=== PATIENT | female | born 1975 | race Caucasian/White ===

== ENCOUNTER 2017-07-09 13:55 | Emergency (ER) | payer MEDICAID ==
[~2017-07-09] VITALS: Ht 170.2 cm; Wt 109.8 kg
[~2017-07-09 13:55] MED LIST: ATORVASTATIN CA10 M1 PO; BENTYL GENERIC10 MG PO; DAILY MULTIPLE1 T11 PO; DICYCLOMINE HCL20 MG PO; ESTRACE2 MG OR; FIORICET1 CAP PO; FUROSEMIDE 40MG40 M1 PO; GAS RELIEF 8080 MG PO; IBUPROFEN800 MG PO; KEFLEX 500MG.500 MG PO; MEDROL 4MG. DOSE4 MG PO; PRILOSEC20 M1 PO; TRAZODONE 50MG50 MG PO; VITAMIN D31000 IU PO; VITAMIN D50000 I1 PO; ZOFRAN 8MG TABLE8 MG PO
[2017-07-09] MEDS ORDERED: REGLAN10 M2 PO (14:09)
[2017-07-09] MEDS ORDERED: IMITREX 25MG TA25 MG PO (14:09)
[2017-07-09] MEDS ORDERED: BENADRYL 25MG C25 MG PO (14:10)
--- NOTE | 2017-07-09 14:12 | Emergency Room Report ---
History of Present Illness Time Seen by MD Vigil Presenting Problem in Triage Pt arrived:Wheelchair Presenting Problem:PT REPORTS A MIGRAINE FOR 2 DAYS. PT REPORTS INTERMITTENT DIZZINESS SINCE YESTERDAY. PT REPORTS WAS USING THE BATHROOM, FELT DIZZY AND REPORTS SHE WOKE UP ON THE BATHROOM FLOOR. 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 N Clinical Suspician of Infection? N Mental Status: 1 - Regular (Normal Baseline) Sepsis Risk:Low Sepsis Risk Have you (or family members/close friends) recently traveled outside the [place]? N If Yes, where/when: Have you had exposure to infectious disease within the past month? N TB? Other? Specify: Comment The patient complains of a migraine headache, dizziness, and syncope. She has a history of migraines. She started having a migraine on Wednesday 6 days ago, typical for her. She has a LEFT occipital headache nausea, vomiting, photophobia. It has been worse for the past couple of days. She has dizziness which feels like presyncope and is seeing spots. This morning she was in the bathroom, got dizzy, and woke up on the floor. She does not feel like she injured herself. She has a chronic "knot" in the LEFT occipital area, this is not new. She has used Benadryl and Reglan at home, but not today. It was not helping. She used Imitrex this morning at about 7 AM. ALLERGIES Coded Allergies: Penicillins (Intermediate, I-ITCHING 12/07/15) cephalexin (From KEFLEX) (07/09/16) morphine (07/09/16) Home Medications Reported Medications Estradiol (Estrace) 2 MG OR DAILY Furosemide 40 MG PO DAILY #30 MULTIVITAMIN (Daily Multiple Vitamin) 1 TAB PO DAILY Atorvastatin Calcium 10 MG PO DAILY #30 ERGOCALCIFEROL (VITAMIN D2) (Vitamin D2) 50,000 IUNITS PO DAILY #4 Sumatriptan Succinate (Imitrex 25MG Tablet) 25 MG PO PRN PRN MIGRAINES Metoclopramide HCl (Reglan) 10 MG PO BID Diphenhydramine Hcl (Benadryl 25MG CAP) 1 CAP PO BID History Medical History General CAD? No Angina: No [place]: No Hypertension? No Hyperlipidemia? No CHF? No DVT? No PE? No COPD? No Asthma? No Anemia? No GERD? No Gastric ulcers? No GI Bleed? No Hernia? No Thyroid Problems? No Hypothyroidism? No CVA? No Seizures? No Diabetes? No Renal Insuffiency? No End Stage Renal Disease? No UTI? No Stones? No BPH? No GB Disease: Yes Nephritic Syndrome? No Asplenia? No Hepatitis? No Sickle Cell Disease? No Arthritis? No Migraines? Yes Cataracts? No Glaucoma? No MRSA? No HIV? No TB? No Anxiety? Yes Depression? Yes Cancer? No More? 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 darkened room. Eye Exam - bilateral eye normal exam, bilateral eye PERRL, bilateral eye EOMI Ear, Nose, Throat hearing grossly normal, normal ENT inspection, TMs normal. Neck normal inspection, non-tender, supple, full range of motion Respiratory Status Yes: trachea midline, chest symmetrical, non tender chest. No: respiratory distress. Lung Sounds bilateral: normal breath sounds, lungs clear. 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 Skin intact, normal color, warm/dry Medical Decision Making LABS/Meds/Orders Pt receiving controlled substance in ED? Yes Pradeep was queried for this patient? Yes Comment [id number] 1 rx diazepam on 10/27/16. Results/Orders Laboratory Tests 07/09/17 1410: Sodium 142, Potassium 3.6, Chloride 104, Carbon Dioxide 26, BUN 16, Creatinine 0.8, Estimated Creat Clear 159, Estimated GFR (MDRD) 79, Glucose 116 H, Calcium 9.4, Total Bilirubin 0.5, AST 15, ALT 30, Alkaline Phosphatase 137 H, Total Protein 7.8, Albumin 4.1, Globulin 3.7 H, Albumin/Globulin Ratio 1.1, WBC 7.6, RBC 4.72, Hgb 13.5, Hct 39.0, MCV 82.7, RDW 14.1, Plt Count 268, MPV 9.2, Gran % 59.5, Gran # 4.5, Lymphocytes % 36.3, Monocytes % 3.1, Eosinophils % 0.8, Basophils % 0.3, Lymphocytes # 2.8, Monocytes # 0.2, Eosinophils # 0.1, Basophils # 0.0, PUBS MCHC 34.5, MCH 28.5 Current Medication Orders Sig/Phan Start time Last Medication Dose Route Stop Time Status Admin Hydromorphone HCl 0 .STK-MED ONE 07/09 151 DCr .ROUTE Hydromorphone HCl 1 MG ONCE ONE 07/09 1515 DCr 07/09 IV 07/09 1516 1519 Diphenhydramine HCl 0 .STK-MED ONE 07/09 1444 DC .ROUTE Ketorolac 0 .STK-MED ONE 07/09 1444 DC Tromethamine .ROUTE Metoclopramide HCl 0 .STK-MED ONE 07/09 1444 DC .ROUTE Diphenhydramine HCl 25 MG ONCE ONE 07/09 1430 DC 07/09 IV 07/09 1431 1448 Ketorolac 30 MG ONCE ONE 07/09 1430 DC 07/09 Tromethamine IV 07/09 1431 1449 Metoclopramide HCl 10 MG ONCE ONE 07/09 1430 DC 07/09 IVP 07/09 1431 1449 Sodium Chloride 10 ML PRN PRN 07/09 1415 AC IV 07/10 141 Orders Procedure Date/time Status DIET-NOTHING BY MOUTH 07/09 D Active ELECTROCARDIOGRAM REQUEST 07/[address] HEAD REQ 07/09 1412 Complete IV SALINE LOCK 07/09 1412 Active CBC WITH AUTO DIFF 07/09 1412 Complete CHEM 12 PROFILE 07/09 1412 Complete 12 LEAD EKG-KASI (INITIAL) 07/09 UNK Active CM/EKG CM/EKG Comments EKG interpreted by Rupert Bacon MD: Rhythm: sinus Rate: 66 [place]: LEFT Ectopy: none Conduction: normal ST Segment Changes: none T Wave Changes: none Q Waves: none No evidence of acute ischemia or injury Left ventricular hypertrophy XRAY/CT/US XRAY/CT/US CT head Comment CT scan interpreted by radiologist: Negative Progress - 3:07 PM: Discussed results with patient. Workup negative. States medication has not relieved headache at all, has just made her tired. States has taken Fioricet for migraines in the past, but does not recall anything that has worked in the emergency department. 3:57 PM: Patient states she feels better. Departure Departure Disposition DC Home or Self Care(routine) Clinical Impression Primary Impression: Migraine Qualifiers: Migraine type: without aura Status migrainosus presence: with status migrainosus Intractability: intractable Qualified Code: G43.011 - Migraine without aura, intractable, with status migrainosus Secondary Impressions: Dizziness Syncope Qualifiers: Syncope type: unspecified Qualified Code: R55 - Syncope and collapse Condition STABLE Patient Instructions DI for Dizziness-Nonvertigo, DI for Migraine, DI for Syncope in Adults (Fainting) Prescriptions Current Visit Scripts APAP 325MG/CAFF 40MG/BUTA 50MG ([id number]-[id number]-[id number] 50-325-40) 1 TAB PO Q6HP PRN migraine #12 TAB ED Critical Care Critical Care No
--- NOTE | 2017-07-09 14:12 | Emergency Room Report ---
History of Present Illness Time Seen by MD Vigil Presenting Problem in Triage Pt arrived:Wheelchair Presenting Problem:PT REPORTS A MIGRAINE FOR 2 DAYS. PT REPORTS INTERMITTENT DIZZINESS SINCE YESTERDAY. PT REPORTS WAS USING THE BATHROOM, FELT DIZZY AND REPORTS SHE WOKE UP ON THE BATHROOM FLOOR. 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 N Clinical Suspician of Infection? N Mental Status: 1 - Regular (Normal Baseline) Sepsis Risk:Low Sepsis Risk Have you (or family members/close friends) recently traveled outside the [place]? N If Yes, where/when: Have you had exposure to infectious disease within the past month? N TB? Other? Specify: Comment The patient complains of a migraine headache, dizziness, and syncope. She has a history of migraines. She started having a migraine on Wednesday 6 days ago, typical for her. She has a LEFT occipital headache nausea, vomiting, photophobia. It has been worse for the past couple of days. She has dizziness which feels like presyncope and is seeing spots. This morning she was in the bathroom, got dizzy, and woke up on the floor. She does not feel like she injured herself. She has a chronic "knot" in the LEFT occipital area, this is not new. She has used Benadryl and Reglan at home, but not today. It was not helping. She used Imitrex this morning at about 7 AM. ALLERGIES Coded Allergies: Penicillins (Intermediate, I-ITCHING 12/07/15) cephalexin (From KEFLEX) (07/09/16) morphine (07/09/16) Home Medications Reported Medications Estradiol (Estrace) 2 MG OR DAILY Furosemide 40 MG PO DAILY #30 MULTIVITAMIN (Daily Multiple Vitamin) 1 TAB PO DAILY Atorvastatin Calcium 10 MG PO DAILY #30 ERGOCALCIFEROL (VITAMIN D2) (Vitamin D2) 50,000 IUNITS PO DAILY #4 Sumatriptan Succinate (Imitrex 25MG Tablet) 25 MG PO PRN PRN MIGRAINES Metoclopramide HCl (Reglan) 10 MG PO BID Diphenhydramine Hcl (Benadryl 25MG CAP) 1 CAP PO BID History Medical History General CAD? No Angina: No [place]: No Hypertension? No Hyperlipidemia? No CHF? No DVT? No PE? No COPD? No Asthma? No Anemia? No GERD? No Gastric ulcers? No GI Bleed? No Hernia? No Thyroid Problems? No Hypothyroidism? No CVA? No Seizures? No Diabetes? No Renal Insuffiency? No End Stage Renal Disease? No UTI? No Stones? No BPH? No GB Disease: Yes Nephritic Syndrome? No Asplenia? No Hepatitis? No Sickle Cell Disease? No Arthritis? No Migraines? Yes Cataracts? No Glaucoma? No MRSA? No HIV? No TB? No Anxiety? Yes Depression? Yes Cancer? No More? 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 darkened room. Eye Exam - bilateral eye normal exam, bilateral eye PERRL, bilateral eye EOMI Ear, Nose, Throat hearing grossly normal, normal ENT inspection, TMs normal. Neck normal inspection, non-tender, supple, full range of motion Respiratory Status Yes: trachea midline, chest symmetrical, non tender chest. No: respiratory distress. Lung Sounds bilateral: normal breath sounds, lungs clear. 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 Skin intact, normal color, warm/dry Medical Decision Making LABS/Meds/Orders Pt receiving controlled substance in ED? Yes Pradeep was queried for this patient? Yes Comment [id number] 1 rx diazepam on 10/27/16. Results/Orders Laboratory Tests 07/09/17 1410: Sodium 142, Potassium 3.6, Chloride 104, Carbon Dioxide 26, BUN 16, Creatinine 0.8, Estimated Creat Clear 159, Estimated GFR (MDRD) 79, Glucose 116 H, Calcium 9.4, Total Bilirubin 0.5, AST 15, ALT 30, Alkaline Phosphatase 137 H, Total Protein 7.8, Albumin 4.1, Globulin 3.7 H, Albumin/Globulin Ratio 1.1, WBC 7.6, RBC 4.72, Hgb 13.5, Hct 39.0, MCV 82.7, RDW 14.1, Plt Count 268, MPV 9.2, Gran % 59.5, Gran # 4.5, Lymphocytes % 36.3, Monocytes % 3.1, Eosinophils % 0.8, Basophils % 0.3, Lymphocytes # 2.8, Monocytes # 0.2, Eosinophils # 0.1, Basophils # 0.0, PUBS MCHC 34.5, MCH 28.5 Current Medication Orders Sig/Phan Start time Last Medication Dose Route Stop Time Status Admin Hydromorphone HCl 0 .STK-MED ONE 07/09 151 DCr .ROUTE Hydromorphone HCl 1 MG ONCE ONE 07/09 1515 DCr 07/09 IV 07/09 1516 1519 Diphenhydramine HCl 0 .STK-MED ONE 07/09 1444 DC .ROUTE Ketorolac 0 .STK-MED ONE 07/09 1444 DC Tromethamine .ROUTE Metoclopramide HCl 0 .STK-MED ONE 07/09 1444 DC .ROUTE Diphenhydramine HCl 25 MG ONCE ONE 07/09 1430 DC 07/09 IV 07/09 1431 1448 Ketorolac 30 MG ONCE ONE 07/09 1430 DC 07/09 Tromethamine IV 07/09 1431 1449 Metoclopramide HCl 10 MG ONCE ONE 07/09 1430 DC 07/09 IVP 07/09 1431 1449 Sodium Chloride 10 ML PRN PRN 07/09 1415 AC IV 07/10 141 Orders Procedure Date/time Status DIET-NOTHING BY MOUTH 07/09 D Active ELECTROCARDIOGRAM REQUEST 07/[address] HEAD REQ 07/09 1412 Complete IV SALINE LOCK 07/09 1412 Active CBC WITH AUTO DIFF 07/09 1412 Complete CHEM 12 PROFILE 07/09 1412 Complete 12 LEAD EKG-KASI (INITIAL) 07/09 UNK Active CM/EKG CM/EKG Comments EKG interpreted by Rupert Bacon MD: Rhythm: sinus Rate: 66 [place]: LEFT Ectopy: none Conduction: normal ST Segment Changes: none T Wave Changes: none Q Waves: none No evidence of acute ischemia or injury Left ventricular hypertrophy XRAY/CT/US XRAY/CT/US CT head Comment CT scan interpreted by radiologist: Negative Progress - 3:07 PM: Discussed results with patient. Workup negative. States medication has not relieved headache at all, has just made her tired. States has taken Fioricet for migraines in the past, but does not recall anything that has worked in the emergency department. 3:57 PM: Patient states she feels better. Departure Departure Disposition DC Home or Self Care(routine) Clinical Impression Primary Impression: Migraine Qualifiers: Migraine type: without aura Status migrainosus presence: with status migrainosus Intractability: intractable Qualified Code: G43.011 - Migraine without aura, intractable, with status migrainosus Secondary Impressions: Dizziness Syncope Qualifiers: Syncope type: unspecified Qualified Code: R55 - Syncope and collapse Condition STABLE Patient Instructions DI for Dizziness-Nonvertigo, DI for Migraine, DI for Syncope in Adults (Fainting) Prescriptions Current Visit Scripts APAP 325MG/CAFF 40MG/BUTA 50MG (Iuxcmt-Fojosuuk-Pewc 50-325-40) 1 TAB PO Q6HP PRN migraine #12 TAB ED Critical Care Critical Care No
[2017-07-09 14:20] LABS: HEMOGLOBIN 13.5 g/dL (12.2-16.2); LYMPH # 2.8 K/mm3 (0.7-4.5); LYMPH % 36.3 % (10-50.0)
--- NOTE | 2017-07-09 14:51 | RADIOLOGY REPORT PS360 ---
CT HEAD W/O CONTRAST HISTORY: Severe headache with dizziness DIZZINESS,MIGRAINE ORDERING PHYSICIAN: Rupert Bacno MD PATIENT AGE: 42 years COMPARISON: None TECHNIQUE: Axial images obtained without contrast. Brain and bone windows reviewed. FINDINGS: No midline shift, mass effect, intracranial hemorrhage, hydrocephalus, or extra-axial fluid collection is evident. The calvarium has an unremarkable appearance. No mastoid effusion. The visualized paranasal sinuses are unremarkable. IMPRESSION: Negative CT head without contrast. No acute finding.
[2017-07-09] MEDS ORDERED: APAP/BUTALBITAL1 TA1 PO (16:00)
[2017-07-09 16:16] VITALS: BP 132/88
== END 2017-07-09 16:41 | disposition home or self-care (01) ==
LOC: ER 13:55
PROVIDERS: Emergency Medicine
DX: G43.001 Migraine without aura, not intractable, with status migrainosus (principal); R42 Dizziness and giddiness; R55 Syncope and collapse; Z90.49 Acquired absence of other specified parts of digestive tract; Z79.890 Hormone replacement therapy; Z79.899 Other long term (current) drug therapy; Z88.5 Allergy status to narcotic agent; Z88.0 Allergy status to penicillin; Z88.8 Allergy status to other drugs, medicaments and biological substances

== ENCOUNTER 2017-07-23 18:27 | Emergency (ER) | payer MEDICAID ==
[~2017-07-23] VITALS: Ht 170.2 cm; Wt 109.8 kg
[~2017-07-23 18:27] MED LIST changes: +APAP/BUTALBITAL1 TA1 PO; +BENADRYL 25MG C25 MG PO; +IMITREX 25MG TA25 MG PO; +REGLAN10 M2 PO
[2017-07-23] MEDS ORDERED: TRIAMCINOL30 GM/TUBE TP (18:47)
[2017-07-23 18:48] VITALS: BP 120/83
--- NOTE | 2017-07-23 18:49 | Urgent Treatment Center Report ---
History of Present Issue Date/Time Seen by Provider 07/23/17 4479 Visit Reason Pt arrived:Walked Presenting Problem:PT STATES SHE GOT INTO POISON ROSA 1 HR AGO ON HER FACE AND HANDS Location if Accident: Onset of symptoms date/time:/ or onset unknown for:MEDICAL HX UNKNOWN Have you (or family members/close friends) recently traveled outside the [place]? N If Yes, where/when: Have you had exposure to infectious disease within the past month? TB? Other? Specify: pt c/o exposure to poison rosa <1 hour ago. Already starting to itch carmen wrists and right cheek. No redness, rash, vesicules. "hoping to stop it in its tracks". Pt has not washed/showered since exposure. No treatment prior to arrival. Source patient Exam Limitations no limitations ALLERGIES Coded Allergies: Penicillins (Intermediate, I-ITCHING 12/07/15) cephalexin (From KEFLEX) (07/09/16) morphine (07/09/16) Home Medications Active Scripts APAP 325MG/CAFF 40MG/BUTA 50MG (Vfgnme-Ukulsqyl-Flho 50-325-40) 1 TAB PO Q6HP PRN migraine #12 TAB Prov: 07/09/17 Reported Medications Estradiol (Estrace) 2 MG OR DAILY Furosemide 40 MG PO DAILY #30 MULTIVITAMIN (Daily Multiple Vitamin) 1 TAB PO DAILY Atorvastatin Calcium 10 MG PO DAILY #30 ERGOCALCIFEROL (VITAMIN D2) (Vitamin D2) 50,000 IUNITS PO DAILY #4 Sumatriptan Succinate (Imitrex 25MG Tablet) 25 MG PO PRN PRN MIGRAINES Metoclopramide HCl (Reglan) 10 MG PO BID Diphenhydramine Hcl (Benadryl 25MG CAP) 1 CAP PO BID History Medical History General CAD? No Angina: No [place]: No Hypertension? No Hyperlipidemia? No CHF? No DVT? No PE? No COPD? No Asthma? No Anemia? No GERD? No Gastric ulcers? No GI Bleed? No Hernia? No Thyroid Problems? No Hypothyroidism? No CVA? No Seizures? No Diabetes? No Renal Insuffiency? No UTI? No Stones? No BPH? No GB Disease: Yes Nephritic Syndrome? No Asplenia? No Hepatitis? No Sickle Cell Disease? No Arthritis? No Migraines? Yes Cataracts? No Glaucoma? No MRSA? No HIV? No TB? No Anxiety? Yes Depression? Yes Cancer? No More? No Immunization HX DT/Tetanus > 10 Years Ago Surgical Hx Previous Surgery?Y GALLBLADDER ERCP X2 COLONOSCOPY SIGMOID COLON REMOVED HYSTERECTOMY Social History Smoking Hx Smoker: Never Smoker Tobacco: No Alcohol Alcohol: No Review of Systems All Other Systems Reviewed and Negative Constitutional denies weakness Eyes denies inflammation, denies pain, denies other (itching) ENT denies: throat pain, throat swelling. Respiratory denies shortness of breath Cardiovascular denies chest pain Gastrointestinal denies nausea Musculoskeletal denies other (no pain) Skin see HPI Physical Exam Vital Signs Vital Signs Date Time Temp Pulse Resp B/P Pulse O2 O2 Flow FiO2 Ox Delivery Rate 07/23 1839 98.7 83 20 120/83 98 General Appearance no apparent distress, obese Eye Exam - bilateral eye normal exam Neck normal inspection Respiratory Status No: respiratory distress. Cardiovascular no peripheral edema Neurologic alert, oriented x 3 Mental status normal mood/affect Skin intact, normal color, warm/dry Medical Decision Making LABS/Meds/Orders Pt receiving controlled substance in ED? No Departure Departure Time of Disposition 1844 Disposition DC Home or Self Care(routine) Clinical Impression Primary Impression: Contact dermatitis due to poison ro[place] Condition STABLE Referrals NO REFERRAL See primary care or return to [facility] immediately for new or worsening symptoms as at that time, steroid pills or injections may be more appropriate. Patient Instructions DI for Poison [place] Allergy, Poison [place], Poison [place], Poison [place] Additional Instructions * Poison [place]: Discussed how poison vine spreads. Be sure to wash everything you think you might have been wearing when you were exposed. The longer you wait to shower, the more you are spreading the oils from the vine. SHOWER IMMEDIATELY AFTER EXPOSURE * cool showers or compresses calms the itching. Oatmeal baths may help as well. * If you need additional medication to help with the itching, zyrtec in the morning and if necessary, benadryl at bedtime. Just remember benadryl causes drowsiness. * steroid cream as needed Discharge Counseling Counseled pt/family regarding diagnosis, medications/RX, home care, follow up needs Prescriptions Current Visit Scripts Triamcinolone Acet 0.1% (Triamcinolone Acet 0.1% Cream 30GM) 1 YUVAL TP TIDP PRN itching #30 GM at [id number]
--- NOTE | 2017-07-23 18:49 | Urgent Treatment Center Report ---
History of Present Issue Date/Time Seen by Provider 07/23/17 7169 Visit Reason Pt arrived:Walked Presenting Problem:PT STATES SHE GOT INTO POISON ROSA 1 HR AGO ON HER FACE AND HANDS Location if Accident: Onset of symptoms date/time:/ or onset unknown for:MEDICAL HX UNKNOWN Have you (or family members/close friends) recently traveled outside the [place]? N If Yes, where/when: Have you had exposure to infectious disease within the past month? TB? Other? Specify: pt c/o exposure to poison rosa <1 hour ago. Already starting to itch carmen wrists and right cheek. No redness, rash, vesicules. "hoping to stop it in its tracks". Pt has not washed/showered since exposure. No treatment prior to arrival. Source patient Exam Limitations no limitations ALLERGIES Coded Allergies: Penicillins (Intermediate, I-ITCHING 12/07/15) cephalexin (From KEFLEX) (07/09/16) morphine (07/09/16) Home Medications Active Scripts APAP 325MG/CAFF 40MG/BUTA 50MG (Fkacfd-Svkxqlto-Moxr 50-325-40) 1 TAB PO Q6HP PRN migraine #12 TAB Prov: 07/09/17 Reported Medications Estradiol (Estrace) 2 MG OR DAILY Furosemide 40 MG PO DAILY #30 MULTIVITAMIN (Daily Multiple Vitamin) 1 TAB PO DAILY Atorvastatin Calcium 10 MG PO DAILY #30 ERGOCALCIFEROL (VITAMIN D2) (Vitamin D2) 50,000 IUNITS PO DAILY #4 Sumatriptan Succinate (Imitrex 25MG Tablet) 25 MG PO PRN PRN MIGRAINES Metoclopramide HCl (Reglan) 10 MG PO BID Diphenhydramine Hcl (Benadryl 25MG CAP) 1 CAP PO BID History Medical History General CAD? No Angina: No [place]: No Hypertension? No Hyperlipidemia? No CHF? No DVT? No PE? No COPD? No Asthma? No Anemia? No GERD? No Gastric ulcers? No GI Bleed? No Hernia? No Thyroid Problems? No Hypothyroidism? No CVA? No Seizures? No Diabetes? No Renal Insuffiency? No UTI? No Stones? No BPH? No GB Disease: Yes Nephritic Syndrome? No Asplenia? No Hepatitis? No Sickle Cell Disease? No Arthritis? No Migraines? Yes Cataracts? No Glaucoma? No MRSA? No HIV? No TB? No Anxiety? Yes Depression? Yes Cancer? No More? No Immunization HX DT/Tetanus > 10 Years Ago Surgical Hx Previous Surgery?Y GALLBLADDER ERCP X2 COLONOSCOPY SIGMOID COLON REMOVED HYSTERECTOMY Social History Smoking Hx Smoker: Never Smoker Tobacco: No Alcohol Alcohol: No Review of Systems All Other Systems Reviewed and Negative Constitutional denies weakness Eyes denies inflammation, denies pain, denies other (itching) ENT denies: throat pain, throat swelling. Respiratory denies shortness of breath Cardiovascular denies chest pain Gastrointestinal denies nausea Musculoskeletal denies other (no pain) Skin see HPI Physical Exam Vital Signs Vital Signs Date Time Temp Pulse Resp B/P Pulse O2 O2 Flow FiO2 Ox Delivery Rate 07/23 1839 98.7 83 20 120/83 98 General Appearance no apparent distress, obese Eye Exam - bilateral eye normal exam Neck normal inspection Respiratory Status No: respiratory distress. Cardiovascular no peripheral edema Neurologic alert, oriented x 3 Mental status normal mood/affect Skin intact, normal color, warm/dry Medical Decision Making LABS/Meds/Orders Pt receiving controlled substance in ED? No Departure Departure Time of Disposition 1844 Disposition DC Home or Self Care(routine) Clinical Impression Primary Impression: Contact dermatitis due to poison rosa Condition STABLE Referrals NO REFERRAL See primary care or return to [facility] immediately for new or worsening symptoms as at that time, steroid pills or injections may be more appropriate. Patient Instructions DI for Poison Rosa Allergy, Poison [place], Poison [place], Poison [place] Additional Instructions * Poison Rosa: Discussed how poison vine spreads. Be sure to wash everything you think you might have been wearing when you were exposed. The longer you wait to shower, the more you are spreading the oils from the vine. SHOWER IMMEDIATELY AFTER EXPOSURE * cool showers or compresses calms the itching. Oatmeal baths may help as well. * If you need additional medication to help with the itching, zyrtec in the morning and if necessary, benadryl at bedtime. Just remember benadryl causes drowsiness. * steroid cream as needed Discharge Counseling Counseled pt/family regarding diagnosis, medications/RX, home care, follow up needs Prescriptions Current Visit Scripts Triamcinolone Acet 0.1% (Triamcinolone Acet 0.1% Cream 30GM) 1 YUVAL TP TIDP PRN itching #30 GM at [id number]
== END 2017-07-23 18:49 | disposition home or self-care (01) ==
LOC: ER 18:27 → UTC 18:30 → ER 18:30 → UTC 18:49
DX: L23.7 Allergic contact dermatitis due to plants, except food (principal); Z88.0 Allergy status to penicillin; Z88.5 Allergy status to narcotic agent; Z79.899 Other long term (current) drug therapy; F41.8 Other specified anxiety disorders

== ENCOUNTER 2017-09-28 15:52 | Emergency (ER) | payer MEDICAID ==
[~2017-09-28] VITALS: Ht 170.2 cm; Wt 108.0 kg
[~2017-09-28 15:52] MED LIST changes: +TRIAMCINOL30 GM/TUBE TP
--- NOTE | 2017-09-28 16:21 | Emergency Room Report ---
History of Present Illness Time Seen by [id number] Presenting Problem in Triage Pt arrived:Walked Presenting Problem:PT PRESENTS WITH A MIGRAINE UNLIKE ANY OTHER SHE HAD EVER HAD. STATES SHE IS USUALLY SENSITIVE TO LIGHT BUT TODAY SHE IS HAVING VOMITING AND DIZZINESS; PAIN IN BACK LEFT SIDE OF HEAD SHE STATES. 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 N Clinical Suspician of Infection? N Mental Status: 1 - Regular (Normal Baseline) Sepsis Risk:Low Sepsis Risk Have you (or family members/close friends) recently traveled outside the [place]? N If Yes, where/when: Have you had exposure to infectious disease within the past month? TB? Other? Specify: Comment The patient complains of a migraine headache since 6:30 this morning. She says it is in typical location, LEFT occipital, where she has a chronic knot on her scalp. She has associated photophobia, 4 episodes of vomiting, and lightheadedness. She has tried her typical Fioricet and Zofran without improvement. She says when she comes to the emergency department she generally gets a "migraine cocktail". ALLERGIES Coded Allergies: Penicillins (Intermediate, I-ITCHING 09/28/17) cephalexin (From KEFLEX) (09/28/17) morphine (09/28/17) Home Medications Active Scripts APAP 325MG/CAFF 40MG/BUTA 50MG (Uotiil-Afktdbwv-Ukqd 50-325-40) 1 TAB PO Q6HP PRN migraine #12 TAB Prov: 07/09/17 Triamcinolone Acet 0.1% (Triamcinolone Acet 0.1% Cream 30GM) 1 YUVAL TP TIDP PRN itching #30 GM Prov: 07/23/17 Reported Medications Estradiol (Estrace) 2 MG OR DAILY Furosemide 40 MG PO DAILY #30 MULTIVITAMIN (Daily Multiple Vitamin) 1 TAB PO DAILY Atorvastatin Calcium 10 MG PO DAILY #30 ERGOCALCIFEROL (VITAMIN D2) (Vitamin D2) 50,000 IUNITS PO DAILY #4 Sumatriptan Succinate (Imitrex 25MG Tablet) 25 MG PO PRN PRN MIGRAINES Metoclopramide HCl (Reglan) 10 MG PO BID Diphenhydramine Hcl (Benadryl 25MG CAP) 1 CAP PO BID History Medical History General CAD? No Angina: No [place]: No Hypertension? No Hyperlipidemia? No CHF? No DVT? No PE? No COPD? No Asthma? No Anemia? No GERD? No Gastric ulcers? No GI Bleed? No Hernia? No Thyroid Problems? No Hypothyroidism? No CVA? No Seizures? No Diabetes? No Renal Insuffiency? No End Stage Renal Disease? No UTI? No Stones? No BPH? No GB Disease: Yes Nephritic Syndrome? No Asplenia? No Hepatitis? No Sickle Cell Disease? No Arthritis? No Migraines? Yes Cataracts? No Glaucoma? No MRSA? No HIV? No TB? No Anxiety? Yes Depression? Yes Cancer? No More? 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 Social History Smoking Hx Smoker: Never Smoker Tobacco: No Type N/A Are you/the child exposed to second-hand smoke: No Alcohol Alcohol: No Review of Systems All Other Systems Reviewed and Negative Constitutional denies fever Eyes photophobia Gastrointestinal vomiting Psychiatric/Neurological headache, denies numbness, denies weakness Physical Exam Vital Signs Vital Signs Date Time Temp Pulse Resp B/P Pulse O2 O2 Flow FiO2 Ox Delivery Rate 09/28 1832 65 18 127/82 99 09/28 1746 63 14 130/88 97 09/28 1742 14 09/28 1652 20 09/28 1609 98.1 86 18 120/89 98 General Appearance mild distress Eye Exam - bilateral eye normal exam, bilateral eye PERRL, bilateral eye EOMI Ear, Nose, Throat hearing grossly normal, normal ENT inspection Neck normal inspection, non-tender, supple, full range of motion Respiratory Status No: respiratory distress. 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 Yes Pradeep was queried for this patient? Yes Comment [phone] [id number] rxs. last rx fioricet on 08/30/17. Results/Orders Current Medication Orders Sig/Phan Start time Last Medication Dose Route Stop Time Status Admin Hydromorphone HCl 1 MG ONCE ONE 09/28 1745 DCr 09/28 IV 09/28 1746 1742 Hydromorphone HCl 0 .STK-MED ONE 09/28 1740 DCr .ROUTE Diphenhydramine HCl 0 .STK-MED ONE 09/28 1646 DC .ROUTE Sodium Chloride 1,000 ML .STK-MED ONE 09/28 1646 DC IV Ketorolac 0 .STK-MED ONE 09/28 1645 DC Tromethamine .ROUTE Prochlorperazine 0 .STK-MED ONE 09/28 1645 DC Edisylate .ROUTE Diphenhydramine HCl 25 MG ONCE ONE 09/28 1630 DC 09/28 IV 09/28 1631 1651 Ketorolac 30 MG ONCE ONE 09/28 1630 DC 09/28 Tromethamine IV 09/28 1631 1652 Prochlorperazine 10 MG ONCE ONE 09/28 1630 DC 09/28 Edisylate IV 09/28 1631 1651 Sodium Chloride 1,000 ML .Q1H1M 09/28 1630 DC 09/28 IV 09/28 1730 1651 Sodium Chloride 10 ML PRN PRN 09/28 1630 DCD IV 09/29 1629 Orders Procedure Date/time Status IV SALINE LOCK 09/28 1630 Active Progress - 5:30 PM: Patient states headache is 7/10. The last time she was here she required a dose of Dilaudid in addition to the migraine cocktail. Dilaudid ordered. 6:19 PM: Patient states she is feeling better. Departure Departure Disposition DC Home or Self Care(routine) Clinical Impression Primary Impression: Migraine Qualifiers: Migraine type: without aura Status migrainosus presence: with status migrainosus Intractability: intractable Qualified Code: G43.011 - Migraine without aura, intractable, with status migrainosus Condition STABLE Patient Instructions DI for Migraine Additional Instructions Continue your current headache medications. Additional instructions for HEADACHE: See your physician as soon as possible for further evaluation. Return immediately if worsening headache, vomiting, problems with vision or speech, fever, numbness or weakness of the extremities, neck pain or stiffness. ED Critical Care Critical Care No at 1943
--- NOTE | 2017-09-28 16:21 | Emergency Room Report ---
History of Present Illness Time Seen by [id number] Presenting Problem in Triage Pt arrived:Walked Presenting Problem:PT PRESENTS WITH A MIGRAINE UNLIKE ANY OTHER SHE HAD EVER HAD. STATES SHE IS USUALLY SENSITIVE TO LIGHT BUT TODAY SHE IS HAVING VOMITING AND DIZZINESS; PAIN IN BACK LEFT SIDE OF HEAD SHE STATES. 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 N Clinical Suspician of Infection? N Mental Status: 1 - Regular (Normal Baseline) Sepsis Risk:Low Sepsis Risk Have you (or family members/close friends) recently traveled outside the [place]? N If Yes, where/when: Have you had exposure to infectious disease within the past month? TB? Other? Specify: Comment The patient complains of a migraine headache since 6:30 this morning. She says it is in typical location, LEFT occipital, where she has a chronic knot on her scalp. She has associated photophobia, 4 episodes of vomiting, and lightheadedness. She has tried her typical Fioricet and Zofran without improvement. She says when she comes to the emergency department she generally gets a "migraine cocktail". ALLERGIES Coded Allergies: Penicillins (Intermediate, I-ITCHING 09/28/17) cephalexin (From KEFLEX) (09/28/17) morphine (09/28/17) Home Medications Active Scripts APAP 325MG/CAFF 40MG/BUTA 50MG (Fyjzbk-Brpmyxqh-Fqnu 50-325-40) 1 TAB PO Q6HP PRN migraine #12 TAB Prov: 07/09/17 Triamcinolone Acet 0.1% (Triamcinolone Acet 0.1% Cream 30GM) 1 YUVAL TP TIDP PRN itching #30 GM Prov: 07/23/17 Reported Medications Estradiol (Estrace) 2 MG OR DAILY Furosemide 40 MG PO DAILY #30 MULTIVITAMIN (Daily Multiple Vitamin) 1 TAB PO DAILY Atorvastatin Calcium 10 MG PO DAILY #30 ERGOCALCIFEROL (VITAMIN D2) (Vitamin D2) 50,000 IUNITS PO DAILY #4 Sumatriptan Succinate (Imitrex 25MG Tablet) 25 MG PO PRN PRN MIGRAINES Metoclopramide HCl (Reglan) 10 MG PO BID Diphenhydramine Hcl (Benadryl 25MG CAP) 1 CAP PO BID History Medical History General CAD? No Angina: No [place]: No Hypertension? No Hyperlipidemia? No CHF? No DVT? No PE? No COPD? No Asthma? No Anemia? No GERD? No Gastric ulcers? No GI Bleed? No Hernia? No Thyroid Problems? No Hypothyroidism? No CVA? No Seizures? No Diabetes? No Renal Insuffiency? No End Stage Renal Disease? No UTI? No Stones? No BPH? No GB Disease: Yes Nephritic Syndrome? No Asplenia? No Hepatitis? No Sickle Cell Disease? No Arthritis? No Migraines? Yes Cataracts? No Glaucoma? No MRSA? No HIV? No TB? No Anxiety? Yes Depression? Yes Cancer? No More? 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 Social History Smoking Hx Smoker: Never Smoker Tobacco: No Type N/A Are you/the child exposed to second-hand smoke: No Alcohol Alcohol: No Review of Systems All Other Systems Reviewed and Negative Constitutional denies fever Eyes photophobia Gastrointestinal vomiting Psychiatric/Neurological headache, denies numbness, denies weakness Physical Exam Vital Signs Vital Signs Date Time Temp Pulse Resp B/P Pulse O2 O2 Flow FiO2 Ox Delivery Rate 09/28 1832 65 18 127/82 99 09/28 1746 63 14 130/88 97 09/28 1742 14 09/28 1652 20 09/28 1609 98.1 86 18 120/89 98 General Appearance mild distress Eye Exam - bilateral eye normal exam, bilateral eye PERRL, bilateral eye EOMI Ear, Nose, Throat hearing grossly normal, normal ENT inspection Neck normal inspection, non-tender, supple, full range of motion Respiratory Status No: respiratory distress. 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 Yes Pradeep was queried for this patient? Yes Comment [id number] rxs. last rx fioricet on 08/30/17. Results/Orders Current Medication Orders Sig/Phan Start time Last Medication Dose Route Stop Time Status Admin Hydromorphone HCl 1 MG ONCE ONE 09/28 1745 DCr 09/28 IV 09/28 1746 1742 Hydromorphone HCl 0 .STK-MED ONE 09/28 1740 DCr .ROUTE Diphenhydramine HCl 0 .STK-MED ONE 09/28 1646 DC .ROUTE Sodium Chloride 1,000 ML .STK-MED ONE 09/28 1646 DC IV Ketorolac 0 .STK-MED ONE 09/28 1645 DC Tromethamine .ROUTE Prochlorperazine 0 .STK-MED ONE 09/28 1645 DC Edisylate .ROUTE Diphenhydramine HCl 25 MG ONCE ONE 09/28 1630 DC 09/28 IV 09/28 1631 1651 Ketorolac 30 MG ONCE ONE 09/28 1630 DC 09/28 Tromethamine IV 09/28 1631 1652 Prochlorperazine 10 MG ONCE ONE 09/28 1630 DC 09/28 Edisylate IV 09/28 1631 1651 Sodium Chloride 1,000 ML .Q1H1M 09/28 1630 DC 09/28 IV 09/28 1730 1651 Sodium Chloride 10 ML PRN PRN 09/28 1630 DCD IV 09/29 1629 Orders Procedure Date/time Status IV SALINE LOCK 09/28 1630 Active Progress - 5:30 PM: Patient states headache is 7/10. The last time she was here she required a dose of Dilaudid in addition to the migraine cocktail. Dilaudid ordered. 6:19 PM: Patient states she is feeling better. Departure Departure Disposition DC Home or Self Care(routine) Clinical Impression Primary Impression: Migraine Qualifiers: Migraine type: without aura Status migrainosus presence: with status migrainosus Intractability: intractable Qualified Code: G43.011 - Migraine without aura, intractable, with status migrainosus Condition STABLE Patient Instructions DI for Migraine Additional Instructions Continue your current headache medications. Additional instructions for HEADACHE: See your physician as soon as possible for further evaluation. Return immediately if worsening headache, vomiting, problems with vision or speech, fever, numbness or weakness of the extremities, neck pain or stiffness. ED Critical Care Critical Care No at 1943
--- OUTSIDE RECORDS SUMMARY | 2017-09-28 16:40 | External Medical Summary Rpt | CCD ---
Author Author , [facility] Organization [facility] Address Unknown Phone [email or web address] Care Team Providers Care Career Development Associate Name Role Phone SHUBHAM PATEL, SHUBHAM Unavailable Unavailable [facility] Unavailable Unavailable [place], [facility] Unavailable [facility]available [facility], [facility] Unavailable Unavailable [facility] Unavailable Unavailable PHYSICIANS, [facility] Unavailable Unavailable [facility] Unavailable Unavailable HEPATOL, [facility] Unavailable [facility]available HOSPITA, [facility] Unavailable Unavailable INC, [facility] Unavailable Unavailable HOSPITAL P, [facility]PITAL P [facility], Unavailable Unavailable [facility] Unavailable Unavailable [facility]ING [facility], [facility] Un[facility] Un[facility], [facility] Unavailable Unavailable INTERNAL MED, [facility], Unavailable Unavailable PLL, [facility], [facility] Unavailable [facility]available OF [facility], [facility] Unavailable Unavailable [facility], [facility], Unavailable [facility] Unavailable Unavailable [facility]ICIANS, [facility] Unavailable Unavailable [facility]ANS EKG, [facility] Unavailable Unavailable [facility], [facility], Unavailable [facility]available [facility] Unavailable Unavailable [facility]ICIANS END, [facility] Unavailable Unavailable [facility], Unavailable Unavailable [facility] Purpose Continuity of Care Document - 12-26-2014 through 2016 Problems Code Diagnosis DOS Provider Status [id number] [facility] 08-26-2017 [facility] RAL DISC [facility] DEGEN LUMBOSACRAL REGION [id number] SPINAL 08-26-2017 [facility] INSTABILITI H PAIN ES [facility]OCIATES LUMBOSACRAL REGION M545 LOW BACK 08-26-2017 [facility] A32269 OTHER LONG 08-26-2017 [facility] TERM H PAIN CURRENT [facility]OC[facility]ATES DRUG THERAPY Z71.3 Dietary 08-24-2017 counseling and surveillanc e Z79.899 Other long 08-24-2017 term (current) drug therapy Z6837 BODY MASS 08-24-2017 ST INDEX BMI CEMENT 37.0-37.9 PHYSICIANS ADULT Z713 DIETARY 08-24-2017 ST COUNSELING CEMENT AND PHYSICIANS SURVEILLANC E G43.009 Migraine 07-23-2017 without aura, not intractable , without status migrainosus R11.0 Nausea 07-23-2017 F43.10 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, unspecified E66.9 Obesity, 07-23-2017 unspecified [id number] MIGRAINE 07-09-2017 [facility] W/O AURA [facility] W/STAT MIGRAINOSUS [id number] MIGRAINE 07-09-2017 [facility] W/O AURA PHYSICIANS, INTRACT [facility] W/STAT MIGRAINOSUS R42 DIZZINESS 07-09-2017 [facility] AND PHYSICIANS GIDDINESS [facility] R51 HEADACHE 07-09-2017 [facility] R55 SYNCOPE AND 07-09-2017 [facility] COLLAPSE PHYSICIANS, [facility] [id number] HORMONE 07-09-2017 [facility] REPLACEMENT [facility] THERAPY INC Z880 ALLERGY 07-09-2017 [facility] STATUS TO MEM HOSP PENICILLIN INC Z885 ALLERGY 07-09-2017 [facility] STATUS TO [facility] HOS[facility] NARCOTIC INC AGENT STATUS Z9049 ACQUIRED 07-09-2017 [facility] Q26661 SPONDYLOSIS 06-21-2017 [facility] W/O H MYELOPATH/R ORTHOPAEDIC ADICULOPATH CTR Y LUMB RGN J26949 PAIN IN 06-18-2017 [facility] LEFT FOOT N EM[facility] SERV[facility] I78809 ACQUIRED 06-18-2017 [place] [facility] COMMUNTIY BOTH CERVIX HOSPITA AND UTERUS K648 OTHER 06-09-2017 ST HEMORRHOIDS [facility] R1032 LEFT LOWER 06-09-2017 ST QUADRANT [facility] PAIN PHYSICIANS R197 DIARRHEA 06-09-2017 ST UNSPECIFIED [facility] PH[facility]ANS R933 ABNORM FIND 06-09-2017 ST ON DX IMAG [facility] OT PARTS PHYSICIANS DIGESTIVE TRACT R938 ABNORMAL 06-09-2017 ST FIND ON DX [facility] OT MED CTR SPEC BODY STRCT Z886 ALLERGY 06-09-2017 ST STATUS TO CEMENT ANALGESIC HEALTHCARE AGENT EDGE STATUS [id number] SPRAIN UNS 05-24-2017 [facility] LIGAMENT [facility]OS[facility] LEFT ANKLE INC INITIAL ENCOUNTER [id number] UNSPECIFIED 05-24-2017 [facility] MEDICAL LEFT ANKLE IMAGING ASS INITIAL ENCOUNTER G8929 OTHER 05-19-2017 ST. CHRONIC [facility] PAIN BR[facility] [id number] PAIN IN 05-19-2017 ST. RIGHT HIP [facility] E06406 OTHER 05-19-2017 RADIOLOGY SPONDYLOSIS ASSOCIATES LUMBAR OF [facility] REGION R109 UNSPECIFIED 05-19-2017 ST ABDOMINAL [facility] PAIN PHYSICIANS R609 EDEMA 05-19-2017 ST UNSPECIFIED [facility] PH[facility]ICIANS Z6839 BODY MASS 05-19-2017 ST INDEX BMI [facility] 39.0-39.9 PHYSICIANS ADULT Z8781 PERSONAL 05-19-2017 RADIOLOGY HISTORY OF ASSOCIATES HEALED OF [facility] TRAUMATIC FRACTURE E669 OBESITY 04-16-2017 ST UNSPECIFIED [facility] PHYSICIANS K529 NONINFECTIV 04-16-2017 ST E [facility] GASTROENTER PHYSICIANS ITIS & COLITIS UNS R1030 LOWER 04-14-2017 ST ABDOMINAL [facility] PAIN HEALTHCARE UNSPECIFIED EDGE R1114 BILIOUS 04-14-2017 ST VOMITING [facility] F41.8 Other 01-27-2017 specified anxiety disorders 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 UNSPECIFIED [facility] END R112 NAUSEA WITH 12-08-2016 ST VOMITING [facility] UNSPECIFIED PHYSICIANS R6881 EARLY 12-08-2016 ST SATIETY [facility] Z6838 BODY MASS 12-08-2016 ST INDEX BMI [facility] 38.0-38.9 PHYSICIANS ADULT E785 HYPERLIPIDE 10-28-2016 [facility] UNSPECIFIED INTERNAL MED N74191 MIGRAINE 10-28-2016 [place] UNS NOT VALLEY INTRACT W/O INTERNAL STATUS MED MIGRAINOSUS R1013 EPIGASTRIC 10-28-2016 [place] PAIN VALLEY INTERNAL MED M5382 OTHER 10-21-2016 [place] SPECIFIED CHIROPRACTI DORSOPATHIE C CENTE S CERVICAL REGION M5386 OTHER 10-21-2016 [place] SPECIFIED CHIROPRACTI DORSOPATHIE C CENTE S LUMBAR REGION K5900 CONSTIPATIO 10-08-2016 [place] N VALLEY UNSPECIFIED INTERNAL MED K5909 OTHER 10-08-2016 [facility] CONSTIPATIO GROUND N FAMILY CLINI R140 ABDOMINAL 10-08-2016 [facility] DISTENSION GROUND GASEOUS FAMILY CLINI R748 ABNORMAL 10-08-2016 ST[facility] LEVELS OF GROUND OTHER SERUM FAMILY ENZYMES CLINI I808 PHLEBITIS 09-01-2016 [place] AND [place] THROMBOPHLE INTERNAL BITIS OF MED OTHER SITES I809 PHLEBITIS & 08-31-2016 [facility] THROMBOPHLE BITIS OF UNSPECIFIED SITE M7989 OTHER 08-31-2016 [place] MEDICAL SPECIFIED SERV SOFT TISSUE FOUNDATION DISORDERS S22226P CONTUSION 08-31-2016 [facility] OF LEFT PHYSICIANS, UPPER ARM PLLC INITIAL ENCOUNTER 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 MORBID 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 VALLEY OBESITY DUE INTERNAL TO EXCESS MED CALORIES Z6841 BODY MASS 08-28-2016 [place] INDEX BMI VALLEY 40.0-44.9 INTERNAL ADULT MED K921 MELENA 08-18-2016 [facility] OLOGY AND HEPATOL R740 NONSPECIFIC 08-18-2016 GASTROENTER ELEVATION OLOGY AND LEVELS HEPATOL TRANSAMINAS E & LDH M7061 TROCHANTERI 08-10-2016 [facility] RIGHT HIP R936 ABNORMAL 08-10-2016 [place] [facility] SERV DI[facility]NOSTIC [facility]OUND[facility] IMAGING OF [place] M461 SACROILIITI 07-30-2016 [place] S NOT VALLEY ELSEWHERE INTERNAL CLASSIFIED MED M5430 SCIATICA 07-30-2016 [place] UNSPECIFIED VALLEY SIDE INTERNAL MED R194 CHANGE IN 07-24-2016 [facility] PHYSICIANS GROUP [id number] MIGRAINE 07-09-2016 [facility] W/O AURA PHYSICIANS, NOT INTRACT PLLC W/O STAT MIGRAIN J029 ACUTE 07-09-2016 [facility] PHARYNGITIS UNSPECIFIED J069 ACUTE UPPER 07-09-2016 [facility] RESPIRATORY INFECTION UNSPECIFIED L259 UNSPECIFIED 06-27-2016 [facility] AM[facility] CONTACT DERMATITIS UNSPECIFIED CAUSE 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 URETHRAL 06-04-2016 SHUBHAM AMANDA DISORDER UNSPECIFIED Q92995 PAIN IN 12-07-2015 [facility] N69285 PAIN IN 12-07-2015 [facility] LEFT LOWER PHYSICIANS, LEG PLLC A4268IO UNS INJURY 12-07-2015 [facility] RT LOWER MEDICAL LEG INITIAL IMAGING ASS ENCOUNTER G4700 INSOMNIA 09-09-2015 ST UNSPECIFIED [facility] R5383 OTHER 09-09-2015 ST FATIGUE [facility] 2689 UNSPECIFIED 07-17-2015 COMBINED VITAMIN D PHYSICIANS DEFICIENCY [place] 2724 OTHER AND 07-17-2015 COMBINED [place] [address] PAIN [place] 07-17-2015 COMBINED JOINT, SITE PHYSICIANS [place] UNSPECIFIED 35151 OTHER 07-17-2015 REINIERLELE AMANDA MALAISE AND FATIGUE 6929 CONTACT 07-02-2015 REINIERLELE AMANDA DERMATITIS& OTHER ECZEMA DUE UNSPEC CAUSE 17766 CHEST PAIN 03-04-2015 ST UNSPECIFIED [facility] PH[facility]IANS EKG 2859 UNSPECIFIED 02-19-2015 ST ANEMIA [facility] 6212 HYPERTROPHY 02-19-2015 ST OF UTERUS [facility] 6253 DYSMENORRHE 02-19-2015 ST A [facility] 6269 UNS D/O 02-19-2015 MENSTRUATIO [facility] N&OTH ABN MED CTR BLEED FE GNT TRACT 48505 OTHER 02-18-2015 RADIOLOGY SPECIFIED ASSOCIATES CIRCULATORY OF [facility] SYSTEM DISORDERS V5881 FITTING AND 02-18-2015 RADIOLOGY ADJUSTMENT ASSOCIATES OF OF [facility] VASCULAR CATHETER V7284 UNSPECIFIED 02-13-2015 Jesse PILLAI PRE-OPERATI CRISTINO VE EXAMINATION 13239 OBESITY, 02-08-2015 ST UNSPECIFIED [facility] PH[facility] V8536 BODY MASS 02-08-2015 INDEX [facility] 36.0-36.9 PHYSICIANS ADULT 6262 EXCESSIVE 01-31-2015 ST OR FREQUENT [facility]ICIANS [place] N 89537 MIGRAINE 01-22-2015 ST UNSP W/O [facility] INTRACT W/O PHYSICIANS STATUS MIGRAINOSUS 486 PNEUMONIA, 01-10-2015 [facility] ORGANISM ASSOC[facility] UNSPECIFIED OF [facility] 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 PAIN [facility] BRENDA V140 PERSONAL 01-10-2015 ST. HISTORY OF [facility] ALLERGY TO BRENDA PENICILLIN V145 PERSONAL 01-10-2015 [facility]. [facility] OF [facility] ALLERGY TO BR[facility] NARCOTIC AGENT V173 FAMILY 01-10-2015 [facility]. [facility] OF [facility] ISCHEMIC [facility] HEART DISEASE V1749 FAMILY 01-10-2015 [facility]. HISTORY OF [facility] OTHER BRENDA CARDIOVASCU LAR DISEASES V5869 LONG-TERM 01-10-2015 ST. (CURRENT) [facility] USE OF BRENDA OTHER MEDICATIONS V6759 OTHER 01-10-2015 ST. FOLLOW-UP [facility] EXAMINATION BRENDA OTHER 4660 ACUTE 12-29-2014 BRONCHITIS [facility] 7862 COUGH 12-29-2014 [facility] OF [facility] 4739 UNSPECIFIED 12-26-2014 SINUSITIS [facility] 50981 ESOPHAGEAL 12-26-2014 REFLUX [facility] F45.8 Other somatoform disorders G43.909 MIGRAINE, UNSP, NOT INTRACTABLE , WITHOUT STATUS MIGRAINOSUS G89.29 Other chronic pain K52.9 Noninfectiv e gastroenter itis and colitis, unspecified M25.551 Pain in right hip M54.5 Low back pain R10.2 Pelvic and perineal pain R10.30 Lower abdominal pain, unspecified R10.31 Right lower quadrant pain R10.84 Generalized abdominal pain R10.9 Unspecified abdominal pain R11.14 Bilious vomiting R11.2 Nausea with vomiting, unspecified R19.7 Diarrhea, unspecified R42 DIZZINESS AND GIDDINESS R55 SYNCOPE AND COLLAPSE R68.81 Early satiety R93.8 Abnormal findings on diagnostic imaging of other specified body structures Z12.31 Encounter for screening mammogram for malignant neoplasm of breast Z13.1 Encounter for screening for diabetes mellitus Z13.220 Encounter for screening for lipoid disorders Z23 Encounter for immunizatio n Medications Na ND Rx Da Fi Fi Am Da Di Ph RX Ph St me C No te ll ll ou ys ag ar # ys at rm s nt no ma ic us Or Da si cy ia de te s n re d [place] 50 10 11 6. 5 00 WA Ac IT 11 -1 -1 00 00 L- ti HR 10 5- 7- 0 07 MA ve OM 78 20 20 51 RT YC 75 17 17 54 IN 1 62 PH AR 25 MA 0 CY MG #5 TA 91 BL ET BE 69 10 11 21 5 00 HO Ac NZ 45 -1 -1 .0 00 ME ti ON 20 6- 7- 00 06 TO ve AT 14 20 20 09 WN AT 33 17 17 61 E 0 87 PH 10 AR 0 MA MG CY CA OF PS UL CY E NT HI AN A BU 00 09 10 20 5 00 HO Ac TA 59 -2 -2 .0 00 ME ti LB 13 1- 7- 00 04 TO ve -A 36 20 20 02 WN CE 90 17 17 47 TA 5 37 PH ND AR N- MA CA CY FF OF 50 -3 CY 25 NT -4 HI 0 AN A ME 63 09 10 12 6 00 HO Ac TO 30 -2 -2 0. 00 ME ti CL 40 1- 7- 00 06 TO ve OP 84 20 20 0 09 WN RA 50 17 17 47 ND 5 96 PH DE AR 5 MA CY MG OF TA BL CY ET NT HI AN A FL 68 09 10 28 7 00 HO Ac OM 00 -2 -2 .0 00 ME ti ET 10 1 7- 06 TO ve DAVIS 16 20 20 09 WN ZI 20 17 17 47 NE 8 98 PH AR 25 MA CY MG OF TA BL CY ET NT HI AN A TO 68 09 10 30 30 00 HO Ac PI 46 -2 -2 .0 00 ME ti RA 20 1 7- 00 06 TO ve MA 10 20 20 09 WN TE 86 17 17 47 0 99 PH 25 AR MA MG CY TA OF BL ET CY NT HI AN A TR 00 09 10 30 7 00 WA Ac IA 60 -2 -2 .0 00 L- ti MC 37 2- 7- 00 07 MA ve IN 86 20 20 51 RT OL 27 17 17 14 ON 8 46 PH E AR 0. MA 1% CY CR #5 EA 91 M ON 57 09 10 30 8 00 WA Ac DA 23 -2 -2 .0 00 L- ti NS 70 7- 7- 00 07 MA ve ET 07 20 20 49 RT RO 81 17 17 53 N 0 44 PH OD AR T MA 8 CY MG #5 TA 91 BL ET AT 60 09 10 30 30 00 HO Ac OR 50 -2 -2 .0 00 ME ti VA 52 2- 7- [address] 57 20 20 09 WN AT 80 17 17 12 IN 9 75 PH AR 10 MA CY MG OF TA BL CY ET NT HI AN A ES 51 09 10 30 30 00 HO Ac TR 86 -2 -2 .0 00 ME ti AD 20 2- 7- 00 06 TO ve IO 33 20 20 08 WN L 40 17 17 43 2 1 57 PH MG AR MA TA CY BL ET OF CY NT HI AN A TI 29 09 10 60 30 00 HO Ac ZA 30 -2 -2 .0 00 ME ti NI 00 6- 7- 00 06 TO ve DI 16 20 20 09 WN NE 91 17 17 50 0 14 PH HC AR L MA 4 CY MG OF TA BL CY ET NT HI AN A BU 00 09 10 12 3 00 HO Ac TA 59 -0 -1 .0 00 ME ti LB 13 8- 3- 00 04 TO ve -A 36 20 20 02 WN CE 90 17 17 45 TA 5 31 PH ND AR N- MA CA CY FF OF 50 -3 CY 25 NT -4 HI 0 AN A SE 65 08 09 30 30 00 HO Ac RT 86 -2 -2 .0 00 ME ti RA 20 1- 2- 00 06 TO ve LI 01 20 20 08 WN NE 20 17 17 85 5 04 PH HC AR L MA 50 CY MG OF TA CY BL NT ET HI AN A AT 60 08 09 30 30 00 HO Ac OR 50 -2 -2 .0 00 ME ti VA 52 1- 2- [address] 57 20 20 09 WN AT 80 17 17 12 IN 9 75 PH AR 10 MA CY MG OF TA BL CY ET NT HI AN A FL 00 08 09 10 5 00 WA Ac ED 14 -2 -2 .0 00 L- ti NI 39 0- 2- 00 07 MA ve SO 73 20 20 50 RT NE 80 17 17 49 5 57 PH 20 AR MA MG CY TA #5 BL 91 ET ON 57 08 09 30 8 00 WA Ac DA 23 -2 -2 .0 00 L- ti NS 70 1- 2- 00 07 MA ve ET 07 20 20 49 RT RO 81 17 17 53 N 0 44 PH OD AR T MA 8 CY MG #5 TA 91 BL ET ME 00 08 09 60 30 00 HO Ac TO 09 -2 -2 .0 00 ME ti CL 32 1- 2- 00 06 TO ve OP 20 20 20 07 WN RA 40 17 17 79 ND 1 14 PH DE AR 5 MA CY MG OF TA BL CY ET NT HI AN A DI 00 08 09 60 30 00 HO Ac PH 18 -2 -2 .0 00 ME ti EN 50 1- 2- 00 06 TO ve HY 64 [address] 81 17 17 79 AM 0 09 PH IN AR E MA 25 CY MG OF CA CY PS NT UL HI E AN A ES 51 08 09 30 30 00 HO Ac TR 86 -2 -2 .0 00 ME ti AD 20 1- 2- 00 06 TO ve IO 33 20 20 08 WN L 40 17 17 43 2 1 57 PH MG AR MA TA CY BL ET OF CY NT HI AN A IB 53 07 08 30 8 00 HO Ac UP 74 -2 -2 .0 00 ME ti RO 60 5- 5- 00 06 TO ve FE 46 20 20 09 WN N 60 17 17 12 80 5 78 PH 0 AR MG MA CY TA BL OF ET CY NT HI AN A ME 68 07 08 21 6 00 HO Ac TH 00 -2 -2 .0 00 ME ti YL 10 0- 5- 00 06 TO ve FL 00 20 20 09 WN ED 50 17 17 10 NI 1 52 PH SO AR LO MA NE CY 4 OF MG CY DO NT SE HI PK AN A AT 60 07 08 30 30 00 HO Ac OR 50 -2 -2 .0 00 ME ti VA 52 4- 5- [address] 57 20 20 09 WN AT 80 17 17 12 IN 9 75 PH AR 10 MA CY MG OF TA BL CY ET NT HI AN A ON 57 06 07 30 8 00 WA Ac DA 23 -2 -2 .0 00 L- ti NS 70 3- 8- 00 07 MA ve ET 07 20 20 49 RT RO 81 17 17 53 N 0 44 PH OD AR T MA 8 CY MG #5 TA 91 BL ET ME 50 06 07 30 30 00 HO Ac TR 11 -1 -2 .0 00 ME ti ON 10 5- 1- 00 06 TO ve ID 33 20 20 08 WN AZ 40 17 17 89 OL 1 99 PH E AR 50 MA 0 CY MG OF TA BL CY ET NT HI AN A CI 16 06 07 20 10 00 HO Ac FL 57 -1 -2 .0 00 ME ti OF 10 5- 1- 00 06 TO ve LO 41 20 20 08 WN XA 25 17 17 90 CI 0 00 PH N AR HC MA L CY 50 0 OF MG CY TA NT B HI AN A FL 68 06 07 20 5 00 HO Ac OM 38 -0 -1 .0 00 ME ti ET 20 8- 4- 00 06 TO ve DAVIS 04 20 20 08 WN ZI 00 17 17 85 NE 1 72 PH AR 12 MA .5 CY MG OF TA CY BL NT ET HI AN A SE 65 06 07 30 30 00 HO Ac RT 86 -0 -0 .0 00 ME ti RA 20 7- 7- 00 06 TO ve LI 01 20 20 08 WN NE 20 17 17 85 5 04 PH HC AR L MA 50 CY MG OF TA CY BL NT ET HI AN A ES 51 05 06 30 30 00 HO Ac TR 86 -3 -3 .0 00 ME ti AD 20 1- 0- 00 06 TO ve IO 33 20 20 08 WN L 40 17 17 43 2 1 57 PH MG AR MA TA CY BL ET OF CY NT HI AN A BU 00 05 06 60 30 00 HO Ac SP 11 -3 -3 .0 00 ME ti IR 51 1- 0- 00 06 TO ve ON 69 20 20 08 WN E 20 17 17 14 HC 2 94 PH L AR 15 MA CY MG OF TA BL CY ET NT HI AN A DI 00 05 06 12 30 00 HO Ac CY 37 -3 -3 0. 00 ME ti CL 81 1- 0- 00 06 TO ve OM 61 20 20 0 08 WN IN 00 17 17 41 E 5 57 PH 10 AR MA MG CY CA OF PS UL CY E NT HI AN A ME 63 05 06 12 30 00 HO Ac TO 30 -3 -3 0. 00 ME ti CL 40 1- 0- 00 06 TO ve OP 84 20 20 0 08 WN RA 50 17 17 80 ND 5 56 PH DE AR 5 MA CY MG OF TA BL CY ET NT HI AN A ME 63 05 06 12 30 00 HO Ac TO 30 -0 -0 0. 00 ME ti CL 40 1- 2- 00 06 TO ve OP 84 20 20 0 08 WN RA 50 17 17 60 ND 5 89 PH DE AR 5 MA CY MG OF TA BL CY ET NT HI AN A ES 51 05 06 30 30 00 HO Ac TR 86 -0 -0 .0 00 ME ti AD 20 1- 2- 00 06 TO ve IO 33 20 20 08 WN L 40 17 17 43 2 1 57 PH MG AR MA TA CY BL ET OF CY NT HI AN A DI 00 04 06 12 30 00 HO Ac CY 37 -2 -0 0. 00 ME ti CL 81 8- 2- 00 06 TO ve OM 61 20 20 0 08 WN IN 00 17 17 41 E 5 57 PH 10 AR MA MG CY CA OF PS UL CY E NT HI AN A ES 51 04 05 30 30 00 HO Ac TR 86 -0 -0 .0 00 ME ti AD 20 3- 5- 00 06 TO ve IO 33 20 20 08 WN L 40 17 17 43 2 1 57 PH MG AR MA TA CY BL ET OF CY NT HI AN A DI 00 03 04 12 30 00 HO Ac CY 37 -2 -2 0. 00 ME ti CL 81 9- 8- 00 06 TO ve OM 61 20 20 0 08 WN IN 00 17 17 41 E 5 57 PH 10 AR MA MG CY CA OF PS UL CY E NT HI AN A ON 00 03 04 30 8 00 HO Ac DA 37 -2 -2 .0 00 ME ti NS 87 9- 8- 00 06 TO ve ET 73 20 20 08 WN RO 49 17 17 41 N 3 58 PH OD AR T MA 8 CY MG OF TA BL CY ET NT HI AN A RA 53 03 04 60 30 00 HO Ac NI 74 -2 -2 .0 00 ME ti TI 60 1- 1- 00 06 TO ve DI 25 20 20 07 WN NE 31 17 17 79 0 24 PH 15 AR 0 MA MG CY TA OF BL ET CY NT HI AN A AT 60 03 04 30 30 00 HO Ac OR 50 -2 -2 .0 00 ME ti VA 52 1- 1- [address] 57 20 20 07 WN AT 80 17 17 79 IN 9 23 PH AR 10 MA CY MG OF TA BL CY ET NT HI AN A BU 00 03 04 60 30 00 HO Ac SP 11 -2 -2 .0 00 ME ti IR 51 1- 1- 00 06 TO ve ON 69 20 20 08 WN E 20 17 17 14 HC 2 94 PH L AR 15 MA CY MG OF TA BL CY ET NT HI AN A FU 69 03 04 30 30 00 HO Ac RO 31 -2 -2 .0 00 ME ti SE 50 1- 1- 00 06 TO ve ND 11 20 20 07 WN DE 71 17 17 04 0 10 PH 40 AR MA MG CY TA OF BL ET CY NT HI AN A ON 45 02 03 30 30 00 HO Ac DA 96 -0 -1 .0 00 ME ti NS 30 9- 7- 00 06 TO ve ET 53 20 20 08 WN RO 93 17 17 11 N 0 44 PH HC AR L MA 8 CY MG OF TA BL CY ET NT HI AN A CAVAZOS 62 02 03 9. 23 00 HO Ac MA 75 -1 -1 00 00 ME ti TR 60 5- 7- 0 06 TO ve IP 52 20 20 08 WN TA 26 17 17 14 N 9 92 PH CAVAZOS AR CC MA CY 10 0 OF MG CY TA NT BL HI ET AN A DI 62 02 03 30 30 00 HO Ac VA 75 -1 -1 .0 00 ME ti LP 60 5- 7- 00 06 TO ve RO 79 20 20 08 WN EX 78 17 17 14 8 93 PH SO AR D MA DR CY 25 OF 0 MG CY NT TA HI B AN A BU 00 02 03 60 30 00 HO Ac SP 11 -1 -1 .0 00 ME ti IR 51 5- 7- 00 06 TO ve ON 69 20 20 08 WN E 20 17 17 14 HC 2 94 PH L AR 15 MA CY MG OF TA BL CY ET NT HI AN A ON 02 03 15 15 00 HO Ac DA 46 -0 -1 .0 00 ME ti NS 20 3- 0- 00 06 TO ve ET 15 20 20 08 WN RO 81 17 17 08 N 3 02 PH OD AR T MA 8 CY MG OF TA BL CY ET NT HI AN A ES 51 01 03 30 30 00 HO Ac TR 86 -3 -0 .0 00 ME ti AD 20 0- 3- 00 06 TO ve IO 33 20 20 07 WN L 40 17 17 13 2 1 46 PH MG AR MA TA CY BL ET OF CY NT HI AN A FL 00 01 03 60 30 00 HO Ac OP 59 -3 -0 .0 00 ME ti RA 15 0- 3- 00 06 TO ve NO 55 20 20 07 WN LO 60 17 17 79 L 1 13 PH 40 AR MA MG CY TA OF BL ET CY NT HI AN A ME 00 01 03 60 30 00 HO Ac TO 09 -3 -0 .0 00 ME ti CL 32 0- 3- 00 06 TO ve OP 20 20 20 07 WN RA 40 17 17 79 ND 1 14 PH DE AR 5 MA CY MG OF TA BL CY ET NT HI AN A DI 00 01 03 60 30 00 HO Ac PH 18 -3 -0 .0 00 ME ti EN 50 0- 3- 00 06 TO ve HY 64 [address] 81 17 17 79 AM 0 09 PH IN AR E MA 25 CY MG OF CA CY PS NT UL HI E AN A 51 01 03 4. 29 00 HO Ac T 99 -3 -0 00 00 ME ti D2 10 0- 3- 0 06 TO ve 60 20 20 08 WN 1. 40 17 17 04 25 1 18 PH AR MG MA CY (5 0, OF 00 0 CY UN NT IT HI ) AN A LI 00 01 03 30 30 00 HO Ac NZ 45 -3 -0 .0 00 ME ti ES 61 0- 3- 00 06 TO ve S 20 20 20 07 WN 29 23 17 17 71 0 0 56 PH MC AR G MA CA CY PS UL OF E CY NT HI AN A FU 69 01 03 30 30 00 HO Ac RO 31 -3 -0 .0 00 ME ti SE 50 0- 3- 00 06 TO ve ND 11 20 20 07 WN DE 71 17 17 04 0 10 PH 40 AR MA MG CY TA OF BL ET CY NT HI AN A AT 60 01 03 30 30 00 HO Ac OR 50 -3 -0 .0 00 ME ti VA 52 0- 3- [address] 57 20 20 07 WN AT 80 17 17 79 IN 9 23 PH AR 10 MA CY MG OF TA BL CY ET NT HI AN A RA 53 01 03 60 30 00 HO Ac NI 74 -3 -0 .0 00 ME ti TI 60 0- 3- 00 06 TO ve DI 25 20 20 07 WN NE 31 17 17 79 0 24 PH 15 AR 0 MA MG CY TA OF BL ET CY NT HI AN A BU 00 01 03 60 30 00 HO Ac SP 59 -3 -0 .0 00 ME ti IR 10 0- 3- 00 06 TO ve ON 65 20 20 08 WN E 80 17 17 04 HC 5 30 PH L AR 10 MA CY MG OF TA BL CY ET NT HI AN A DI 00 12 01 3. 3 00 HO Ac AZ 59 -2 -2 00 00 ME ti EP 15 7- 7- 0 04 TO ve AM 62 20 20 02 WN 2 10 16 17 07 5 95 PH MG AR MA TA CY BL ET OF CY NT HI AN A AT 60 12 01 30 30 00 HO Ac OR 50 -1 -2 .0 00 ME ti VA 52 9- 0- [address] 57 20 20 07 WN AT 80 16 17 79 IN 9 23 PH AR 10 MA CY MG OF TA BL CY ET NT HI AN A RA 68 12 01 60 30 00 HO Ac NI 46 -1 -2 .0 00 ME ti TI 20 9- 0- 00 06 TO ve DI 24 20 20 07 WN NE 80 16 17 79 5 24 PH 15 AR 0 MA MG CY TA OF BL ET CY NT HI AN A BU 00 12 01 60 30 00 HO Ac SP 59 -2 -2 .0 00 ME ti IR 10 0- 0- 00 06 TO ve ON 65 20 20 07 WN E 80 16 17 36 HC 5 14 PH L AR 10 MA CY MG OF TA BL CY ET NT HI AN A ES 51 12 01 30 30 00 HO Ac TR 86 -1 -2 .0 00 ME ti AD 20 9- 0- 00 06 TO ve IO 33 20 20 07 WN L 40 16 17 13 2 1 46 PH MG AR MA TA CY BL ET OF CY NT HI AN A DI 00 12 01 60 30 00 HO Ac PH 18 -1 -2 .0 00 ME ti EN 50 9- 0- 00 06 TO ve HY 64 [address] 81 16 17 79 AM 0 09 PH IN AR E MA 25 CY MG OF CA CY PS NT UL HI E AN A FL 00 12 01 60 30 00 HO Ac OP 59 -1 -2 .0 00 ME ti RA 15 9- 0- 00 06 TO ve NO 55 20 20 07 WN LO 60 16 17 79 L 1 13 PH 40 AR MA MG CY TA OF BL ET CY NT HI AN A ME 00 12 01 60 30 00 HO Ac TO 09 -1 -2 .0 00 ME ti CL 32 9- 0- 00 06 TO ve OP 20 20 20 07 WN RA 40 16 17 79 ND 1 14 PH DE AR 5 MA CY MG OF TA BL CY ET NT HI AN A 51 12 01 4. 28 00 HO Ac T 99 -2 -2 00 00 ME ti D2 10 0- 0- 0 06 TO ve 60 20 20 07 WN 1. 40 16 17 39 25 1 52 PH AR MG MA CY (5 0, OF 00 0 CY UN NT IT HI ) AN A FU 69 12 01 30 30 00 HO Ac RO 31 -1 -2 .0 00 ME ti SE 50 9- 0- 00 06 TO ve ND 11 20 20 07 WN DE 71 16 17 04 0 10 PH 40 AR MA MG CY TA OF BL ET CY NT HI AN A LI 00 12 01 30 30 00 HO Ac NZ 45 -1 -1 .0 00 ME ti ES 61 2- 3- 00 06 TO ve S 20 20 20 07 WN 29 23 16 17 71 0 0 56 PH MC AR G MA CA CY PS UL OF E CY NT HI AN A Encounters Encounter Start End Date Code Location Performer Type Date [facility] - 7 7 [facility] [place] [id number] 7 [facility] [place] [id number] 7 [address] [facility] [place] [address] [address] [facility] [place] [address] [facility] [place] [address] [address] [facility] [place] [address] [address] [facility] [address] [facility] [place] [address] [address] [facility] [place] [address] [address] [facility] [address] [facility] N [facility] - [address] [facility] [address] - 5 5 [facility] - 5 5 [facility]
--- OUTSIDE RECORDS SUMMARY | 2017-09-28 16:40 | External Medical Summary Rpt | CCD ---
Author Author , [facility] Organization [facility] Address Unknown Phone [email or web address] Care Team Providers Care Nurse Recruiter Name Role Phone SHUBHAM PATEL, SHUBHAM Unavailable Unavailable [facility] Unavailable Unavailable [place], [facility] Unavailable Unavailable [facility], [facility] Unavailable Unavailable [facility], [facility] Unavailable Unavailable PHYSICIANS, [facility] Unavailable Unavailable [facility] Unavailable Unavailable [facility], [facility], [facility] Unavailable Unavailable INC, [facility] Unavailable Unavailable HOSPITAL P, [facility] P [facility], Unavailable Unavailable [facility] Unavailable Unavailable [facility], [facility] Un[facility], [facility] Unavailable Unavailable INTERNAL MED, [facility], Unavailable Unavailable PLL, [facility], [facility] Unavailable Unavailable OF [facility], [facility]available Unavailable EM[facility]ENC[facility] SERV[facility], [facility], Unavailable [facility]available [facility] Unavailable Unavailable PHYSICIANS, [facility] Unavailable Unavailable PHYSICIANS EKG, [facility] Unavailable Unavailable C[facility]INO, [facility], Unavailable Unavailable [facility] Unavailable Unavailable PHYSICIANS END, [facility] Unavailable [facility]available [facility], Unavailable Unavailable [facility] Purpose Continuity of Care Document - 12-26-2014 through 2016 Problems Code Diagnosis DOS Provider Status M5137 [facility] 08-26-2017 [facility] INTERVERTEB H PA[facility] RAL DISC [facility] DEGEN [place]UMB[place]ACRAL REGION M532X7 SPINAL 08-26-2017 [facility] INSTABILITI H PAIN ES ASSOCIATES LUMBOSACRAL REGION M545 LOW BACK 08-26-2017 [facility] H [facility] A81599 OTHER LONG 08-26-2017 [facility] TERM H PAIN CURRENT ASSOCIATES DRUG THERAPY Z71.3 Dietary 08-24-2017 counseling and surveillanc e Z79.899 Other long 08-24-2017 term (current) drug therapy Z6837 BODY MASS 08-24-2017 ST INDEX BMI [place] 37.0-37.9 PHYSICIANS ADULT Z713 DIETARY 08-24-2017 ST COUNSELING [place] AND PHYSICIANS SURVEILLANC E G43.009 Migraine 07-23-2017 without aura, not intractable , without status migrainosus R11.0 Nausea 07-23-2017 F43.10 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, unspecified E66.9 Obesity, 07-23-2017 unspecified A61970 MIGRAINE 07-09-2017 BC W/O [facility] P W/STAT MIGRAINOSUS [id number] MIGRAINE 07-09-2017 [facility] W/O AURA PHYSICIANS, INTRACT [facility] W/STAT MIGRAINOSUS R42 DIZZINESS 07-09-2017 [facility] AND PHYSICIANS GIDDINESS [facility] R51 HEADACHE 07-09-2017 [facility] R55 SYNCOPE AND 07-09-2017 [facility] COLLAPSE PHYSICIANS, [facility] R23197 HORMONE 07-09-2017 [facility] REPLACEMENT [facility] THERAPY INC Z880 ALLERGY 07-09-2017 [facility] STATUS TO [facility] PENICILLIN INC Z885 ALLERGY 07-09-2017 [facility] STATUS TO [facility] NARCOTIC INC AGENT STATUS Z9049 ACQUIRED 07-09-2017 [facility] D[facility] TRA[facility] R78198 SPONDYLOSIS 06-21-2017 [facility] W/O H MYELOPATH/R ORTHOPAEDIC ADICULOPATH CTR Y LUMB RGN Q78028 PAIN IN 06-18-2017 [facility] LEFT FOOT N EMERG[facility]Y SERVI [id number] ACQUIRED 06-18-2017 [place] [facility] AND [...] STRCT Z886 ALLERGY 06-09-2017 ST STATUS TO [place] [facility] AGENT EDGE STATUS [id number] SPRAIN UNS 05-24-2017 [facility] LIGAMENT [facility] LEFT ANKLE INC INITIAL ENCOUNTER [id number] UNSPECIFIED 05-24-2017 [facility] MEDICAL LEFT ANKLE IMAGING ASS INITIAL ENCOUNTER G8929 OTHER 05-19-2017 ST. CHRONIC [facility] PAIN BRENDA W40138 PAIN IN 05-19-2017 ST. RIGHT HIP [facility] BRENDA [id number] OTHER 05-19-2017 RAD[facility]OLOGY SPONDYLOSIS ASSOCIATES LUMBAR OF [facility] REGION R109 UNSPECIFIED 05-19-2017 ST ABDOMINAL [facility] PAIN PHYSICIANS R609 EDEMA 05-19-2017 ST UNSPECIFIED [facility] PHYSICIANS Z6839 BODY MASS 05-19-2017 ST INDEX BMI [facility] 39.0-39.9 PHYSICIANS ADULT Z8781 PERSONAL 05-19-2017 RADIOLOGY HISTORY OF ASSOCIATES [facility]ED OF [facility] TRAUMATIC FRACTURE E669 OBESITY 04-16-2017 ST UNSPECIFIED [...] 38.0-38.9 PHYSICIANS ADULT E785 HYPERLIPIDE 10-28-2016 [facility] UNSPECIFIED INTERNAL MED L53124 MIGRAINE 10-28-2016 [place] UNS NOT VALLEY INTRACT [...] OTHER SITES I809 PHLEBITIS & 08-31-2016 [facility] THROMBOPHLE BITIS OF UNSPECIFIED SITE M7989 OTHER 08-31-2016 [place] [facility] SPECIFIED SERV SOFT TISSUE FOUNDATION DISORDERS [id number] CONTUSION 08-31-2016 [facility] OF LEFT PHYSICIANS, UPPER ARM PLLC INITIAL ENCOUNTER E6601 MORBID 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 [place] OBESITY DUE INTERNAL TO EXCESS MED CALORIES Z6841 BODY MASS 08-28-2016 [place] INDEX BMI [place] 40.0-44.9 INTERNAL ADULT MED K921 MELENA 08-18-2016 [facility]Y [facility] R740 NONSPECIFIC 08-18-2016 GASTROENTER ELEVATION OLOGY AND LEVELS HEPATOL TRANSAMINAS E & LDH M7061 TROCHANTERI 08-10-2016 [facility] RIGHT HIP R936 ABNORMAL 08-10-2016 [place] [facility] IMAGING OF [place] M461 SACROILIITI 07-30-2016 [place] S NOT VALLEY ELSEWHERE INTERNAL CLASSIFIED MED M5430 SCIATICA 07-30-2016 [facility] UNSPECIFIED VALLEY SIDE INTERNAL MED R194 CHANGE IN 07-24-2016 [facility] U79167 MIGRAINE 07-09-2016 [facility] W/O AURA PHYSICIANS, NOT INTRACT PLLC W/O STAT MIGRAIN J029 ACUTE 07-09-2016 [facility] PHARYNGITIS UNSPECIFIED J069 ACUTE UPPER 07-09-2016 [facility] AMANDA RESPIRATORY INFECTION UNSPECIFIED L259 UNSPECIFIED 06-27-2016 [facility] AMANDA CONTACT DERMATITIS UNSPECIFIED CAUSE N369 URETHRAL 06-04-2016 SHUBHAM AMANDA DISORDER UNSPECIFIED R09860 PAIN IN 12-07-2015 [facility] G10216 PAIN IN 12-07-2015 [facility] LEFT LOWER PHYSICIANS, LEG PLLC F8884SO UNS INJURY 12-07-2015 [facility] RT LOWER MEDICAL LEG INITIAL IMAGING ASS ENCOUNTER G4700 INSOMNIA 09-09-2015 ST UNSPECIFIED [facility] PHYSICIANS R5383 OTHER 09-09-2015 ST FATIGUE [facility] PHYSICI[facility] 2689 UNSPECIFIED 07-17-2015 COMBINED VITAMIN D PHYSICIANS DEFICIENCY [place] 2724 OTHER AND 07-17-2015 COMBINED [place] [address] PAIN [place] 07-17-2015 COMBINED JOINT, SITE PHYSICIANS [place] UNSPECIFIED 73681 OTHER 07-17-2015 REINIERLELE AMANDA MALAISE AND FATIGUE 6929 CONTACT 07-02-2015 REINIERLELE AMANDA DERMATITIS& OTHER ECZEMA DUE UNSPEC CAUSE 23301 CHEST PAIN 03-04-2015 ST UNSPECIFIED [facility] PH[facility]IANS EKG 2859 UNSPECIFIED 02-19-2015 ST ANEMIA [facility] 6212 HYPERTROPHY 02-19-2015 ST OF UTERUS [facility] 6253 DYSMENORRHE 02-19-2015 ST A [facility] 6269 UNS D/O 02-19-2015 MENSTRUATIO [facility] N&OTH ABN MED CTR BLEED FE GNT TRACT 14875 OTHER 02-18-2015 RADIOLOGY SPECIFIED ASSOCIATES CIRCULATORY OF [facility] DISORDERS V5881 FITTING AND 02-18-2015 RADIOLOG[facility] ADJUSTMENT ASSOCIATES OF OF [facility] VASCULAR CATHETER V7284 UNSPECIFIED 02-13-2015 Jesse PILLAI PRE-OPERATI CRISTINO VE EXAMINATION 37253 OBESITY, 02-08-2015 ST UNSPECIFIED [facility] PHYSICIANS V8536 BODY MASS 02-08-2015 INDEX [facility] 36.0-36.9 PHYSICIANS ADULT 6262 EXCESSIVE 01-31-2015 ST OR FREQUENT [facility] PHYSICIANS MENSTRUATIO N 35727 MIGRAINE 01-22-2015 ST UNSP W/O [facility] INTRACT W/O PHYSICIANS STATUS MIGRAINOSUS 486 PNEUMONIA, 01-10-2015 [facility] ORGANISM ASSOC[facility] UNSPECIFIED OF [facility] 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 PAIN [facility] BRENDA [...] PHYSICIANS 7862 COUGH 12-29-2014 [facility] 4739 UNSPECIFIED 12-26-2014 SINUSITIS [facility] 59092 ESOPHAGEAL 12-26-2014 REFLUX [facility] F45.8 Other [...] 17 17 47 TA 5 37 PH AR AR N- MA CA CY FF OF 50 -3 CY 25 NT -4 HI 0 AN A ME 63 09 10 12 6 00 HO Ac TO 30 -2 -2 0. 00 ME ti CL 40 1- 7- 00 06 TO ve OP 84 20 20 0 09 WN RA 50 17 17 47 AR 5 96 PH DE AR 5 MA CY MG OF TA BL CY ET NT HI AN A PA 68 09 10 28 7 00 HO [...] 17 17 45 TA 5 31 PH AR AR N- MA CA CY FF OF [...] BL CY ET NT HI AN A PA 00 08 09 10 5 00 WA [...] 07 WN RA 40 17 17 79 AR 1 14 PH DE AR 5 MA [...] 10 0- 5- 00 06 TO ve PA 00 20 20 09 WN ED 50 [...] 06 07 20 10 00 HO Ac PA 57 -1 -2 .0 00 ME ti OF 10 5- 1- 00 06 TO ve LO 41 20 20 08 WN XA 25 17 17 90 CI 0 00 PH N AR HC MA L CY 50 0 OF MG CY TA NT B HI AN A PA 68 06 07 20 5 00 HO [...] 08 WN RA 50 17 17 80 AR 5 56 PH DE AR 5 MA CY MG OF TA BL CY ET NT HI AN A ME 63 05 06 12 30 00 HO Ac TO 30 -0 -0 0. 00 ME ti CL 40 1- 2- 00 06 TO ve OP 84 20 20 0 08 WN RA 50 17 17 60 AR 5 89 PH DE AR 5 MA [...] 50 1- 1- 00 06 TO ve AR 11 20 20 07 WN DE 71 [...] ET OF CY NT HI AN A PA 00 01 03 60 30 00 HO [...] 07 WN RA 40 17 17 79 AR 1 14 PH DE AR 5 MA [...] 50 0- 3- 00 06 TO ve AR 11 20 20 07 WN DE 71 [...] PS NT UL HI E AN A PA 00 12 01 60 30 00 HO [...] 07 WN RA 40 16 17 79 AR 1 14 PH DE AR 5 MA [...] 50 9- 0- 00 06 TO ve AR 11 20 20 07 WN DE 71 [...] End Date Code Location Performer Type Date [facility] - [facility] [place] [address] [facility] [place] [address] [facility] [place] [address] [facility] [place] [address] [facility] [place] [address] [facility] [place] [address] [facility] [address] [facility] [place] [address] [address] [facility] [place] [address] [address] [facility] [address] [facility] N [facility] 5 5 [facility] - 5 5 [facility] - 5 5 [facility]
--- OUTSIDE RECORDS SUMMARY | 2017-09-28 16:44 | External Medical Summary Rpt | CCD ---
Author Author , SCARLETT Solorzano SCARLETT Address Unknown Phone [email or web address] Care Team Providers Care Tissue Technologist Name Role Phone SHUBHAM AMANDA, SHUBHAM Unavailable Unavailable AMANDA [facility] Un[facility] Unavailable [place], [facility] Unavailable Un[facility], [facility] Un[facility] Unavailable Unavailable PHYSICIANS, [facility] Un[facility] Unavailable Unavailable [facility], [facility] Un[facility] Un[facility], [facility] Unavailable Unavailable INC, [facility] Unavailable Unavailable [facility], Unavailable Unavailable [facility] Un[facility]available [facility] Un[facility], [facility] Unavailable Unavailable INTERNAL MED, [facility], Unavailable Unavailable PLL, [facility], [facility] Unavailable Unavailable OF [facility], [facility] Unavailable Unavailable EMERGENCY SERVI, [facility], Unavailable Unavailable [facility] Unavailable Unavailable PHYSICIANS, [facility] Unavailable Unavailable PHYSICIANS EKG, [facility] Unavailable Unavailable CRISTINO, [facility], Unavailable Unavailable [facility] Unavailable Unavailable PHYSICIANS END, [facility] Unavailable Unavailable [facility], [facility], Unavailable Unavailable [facility] Purpose Continuity of Care Document - 12-26-2014 through 2016 Problems Code Diagnosis DOS Provider Status [id number] [facility] 08-26-2017 [facility]TE[facility] RAL DISC [facility] DEGEN [place]UM[place]CRAL REGION [id number] SPINAL 08-26-2017 [facility] INSTABILITI H PAIN ES ASSOCIATES LUMBOSACRAL REGION M545 LOW BACK 08-26-2017 [facility] PAIN H PAIN [facility] [id number] OTHER LONG 08-26-2017 [facility] TERM H PAIN CURRENT ASSOCIATES DRUG THERAPY Z6837 BODY MASS 08-24-2017 ST INDEX BMI [facility] 37.0-37.9 PHYSICIANS ADULT Z713 DIETARY 08-24-2017 ST COUNSELING [facility] AND PHYSICIANS SURVEILLANC E [id number] MIGRAINE 07-09-2017 BC W/O [facility] W/STAT MIGRAINOSUS [id number] MIGRAINE 07-09-2017 [facility] W/O [facility], [facility] W/STAT MIGRAINOSUS R42 DIZZINESS 07-09-2017 [facility] AND [place] GIEPHRAIMINESS [facility] R51 HEADACHE 07-09-2017 [facility] R55 SYNCOPE AND 07-09-2017 [facility] COLLAPSE PHYSICIANS, [facility] R08635 HORMONE 07-09-2017 [facility] REPLACEMENT [facility] THERAPY INC Z880 ALLERGY 07-09-2017 [facility] STATUS TO MEM HOS[facility] PENICILLIN INC Z885 ALLERGY 07-09-2017 [facility] STATUS TO MEM HOS[facility] NARCOTIC INC AGENT STATUS Z9049 ACQUIRED 07-09-2017 [facility]ENCE [facility] P DIGESTIVE TRACT [id number] SPONDYLOSIS 06-21-2017 [facility] W/O H MYELOPATH/R [facility] ADICULOPATH CTR Y LUMB RGN [id number] PAIN IN 06-18-2017 [facility]OT N [facility] [id number] ACQUIRED 06-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 [facility] COMMUNTIY BOTH CERVIX HOSPITA AND UTERUS K648 OTHER 06-09-2017 ST HEMORRHOIDS [facility] R1032 LEFT LOWER 06-09-2017 ST QUADRANT [facility] PAIN PHYSICIANS R197 DIARRHEA 06-09-2017 ST UNSPECIFIED [facility] PHYSICIANS R933 ABNORM FIND 06-09-2017 ST ON DX IMAG [facility] OT PARTS PHYSICIANS DIGESTIVE TRACT R938 ABNORMAL 06-09-2017 ST FIND ON DX [facility] SPEC BODY STRCT Z886 ALLERGY 06-09-2017 ST STATUS TO [facility] ANALGESIC [facility]ALTHCARE AGENT EDGE STATUS [id number] SPRAIN UNS 05-24-2017 [facility] L[facility]AMENT [facility] LEFT ANKLE INC INITIAL ENCOUNTER [id number] UNSPECIFIED 05-24-2017 [place] [facility] LEFT ANKLE IMAGING ASS INITIAL ENCOUNTER G8929 OTHER 05-19-2017 ST. CHRONIC [facility] PAIN BRENDA Y14741 PAIN IN 05-19-2017 ST. RIGHT HIP [facility] BRENDA V26578 OTHER 05-19-2017 RADIOLOGY SPONDYLOSIS ASSOCIATES LUMBAR OF [facility] REGION R109 UNSPECIFIED 05-19-2017 ST ABDOMINAL [facility] PAIN PHYSICIANS R609 EDEMA 05-19-2017 ST UNSPECIFIED [facility] PHYSICIANS Z6839 BODY MASS 05-19-2017 ST INDEX BMI [facility] 39.0-39.9 PHYSICIANS ADULT Z8781 PERSONAL 05-19-2017 RADIOLOGY HISTORY OF ASSOCIATES HEALED OF [facility] TRAUMATIC FRACTURE E669 OBESITY 04-16-2017 ST UNSPECIFIED [facility] PHYSICIANS K529 NONINFECTIV 04-16-2017 E [facility] GASTROENTER PHYSICIANS ITIS & COLITIS UNS R1030 LOWER 04-14-2017 ST ABDOMINAL [facility] PAIN HEALTHCARE UNSPECIFIED EDGE R1114 BILIOUS 04-14-2017 ST VOMITING [facility] EDGE 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 UNSPECIFIED [facility] PHYSICIANS END R112 NAUSEA WITH 12-08-2016 ST VOMITING [facility] UNSPECIFIED PHYSICIANS R6881 EARLY 12-08-2016 ST SATIETY [facility] PHYSICIANS Z6838 BODY MASS 12-08-2016 ST INDEX BMI [facility] 38.0-38.9 PHYSICIANS ADULT E785 HYPERLIPIDE 10-28-2016 [place] UNSPECIFIED INTERNAL MED Z64200 MIGRAINE 10-28-2016 [place] UNS NOT VALLEY INTRACT [...] MED OTHER SITES I809 PHLEBITIS & 08-31-2016 [facility] THROMBOPHLE BITIS OF UNSPECIFIED SITE M7989 OTHER 08-31-2016 [place] [facility] SPECIFIED SERV SOFT TISSUE FOUNDATION DISORDERS T09455M CONTUSION 08-31-2016 [facility] OF LEFT PHYSICIANS, UPPER ARM PLLC INITIAL ENCOUNTER E6601 MORBID 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 OBESITY DUE INTERNAL TO EXCESS MED CALORIES Z6841 BODY MASS 08-28-2016 [place] INDEX BMI VALLEY 40.0-44.9 INTERNAL ADULT MED K921 MELENA 08-18-2016 [facility] OLOGY AND HEPATOL R740 NONSPECIFIC 08-18-2016 GASTROENTER ELEVATION OLOGY AND LEVELS HEPATOL TRANSAMINAS E & LDH M7061 TROCHANTERI 08-10-2016 [facility] RIGHT HIP R936 ABNORMAL 08-10-2016 [place] [facility] F[facility] ON [facility] IMAGING OF [place] M461 SACROILIITI 07-30-2016 [place] S NOT VALLEY ELSEWHERE INTERNAL CLASSIFIED MED M5430 SCIATICA 07-30-2016 [place] UNSPECIFIED VALLEY SIDE INTERNAL MED R194 CHANGE IN 07-24-2016 [facility] BOWEL HABIT PHYSICIANS GROUP G06042 MIGRAINE 07-09-2016 [facility] W/O [facility], NOT INTRACT PLLC W/O STAT MIGRAIN J029 ACUTE 07-09-2016 [facility] AMANDA PHARYNGITIS UNSPECIFIED J069 ACUTE UPPER 07-09-2016 [facility] AMANDA RESPIRATORY INFECTION UNSPECIFIED L259 UNSPECIFIED 06-27-2016 [facility] AMANDA CONTACT DERMATITIS UNSPECIFIED CAUSE N369 URETHRAL 06-04-2016 ARNOLD AMANDA DISORDER UNSPECIFIED B22386 PAIN IN 12-07-2015 [place] [facility] T48349 PAIN IN 12-07-2015 [facility] LEFT LOWER PHYSICIANS, LEG PLLC G2725YA UNS INJURY 12-07-2015 [place] RT LOWER MEDICAL LEG INITIAL IMAGING ASS ENCOUNTER G4700 INSOMNIA 09-09-2015 ST UNSPECIFIED [facility] PHYSICIANS R5383 OTHER 09-09-2015 ST FATIGUE [facility] 2689 UNSPECIFIED 07-17-2015 COMBINED VITAMIN D PHYSICIANS DEFICIENCY [place] 2724 OTHER AND 07-17-2015 COMBINED [place] [address] PAIN IN 07-17-2015 COMBINED JOINT, SITE PHYSICIANS [place] UNSPECIFIED 14572 OTHER 07-17-2015 SHUBHAM PATEL MALAISE AND FATIGUE 6929 CONTACT 07-02-2015 SHUBHAM PATEL DERMATITIS& OTHER ECZEMA DUE UNSPEC CAUSE 02041 CHEST PAIN 03-04-2015 ST UNSPECIFIED [facility] PHYSICIANS EKG 2859 UNSPECIFIED 02-19-2015 ST ANEMIA [facility] 6212 HYPERTROPHY 02-19-2015 ST OF UTERUS [facility] 6253 DYSMENORRHE 02-19-2015 ST A [facility] 6269 UNS D/O 02-19-2015 ST MENSTRUATIO [facility] N&OTH ABN MED CTR BLEED FE GNT TRACT 53691 OTHER 02-18-2015 RADIOLOGY SPECIFIED ASSOCIATES CIRCULATORY OF [facility] SYSTEM DISORDERS V5881 FITTING AND 02-18-2015 RADIOLOGY ADJUSTMENT ASSOCIATES OF OF [facility] VASCULAR CATHETER V7284 UNSPECIFIED 02-13-2015 [facility]. 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 PAIN [facility] BRENDA [...] OF BRENDA OTHER MEDICATIONS V6759 OTHER 01-10-2015 . FOLLOW-UP SUMTER EXAMINATION BRENDA OTHER 4660 ACUTE 12-29-2014 BRONCHITIS [facility] 7862 COUGH 12-29-2014 [facility] ASSOC[facility]ATES OF [facility] 5569 UNSPECIFIED 12-26-2014 SINUSITIS [facility] 53175 ESOPHAGEAL 12-26-2014 REFLUX [facility] Medications Na ND Rx Da Fi Fi Am Da Di Ph RX Ph St me C No te ll ll ou ys ag ar # ys at rm s nt no ma ic us Or Da si cy ia de te s n re d BE 69 10 11 21 5 00 HO Ac NZ 45 -1 -1 .0 00 ME ti ON 20 6- 7- 00 06 TO ve AT 14 20 20 09 WN AT 33 17 17 61 E 0 87 PH 10 AR 0 MA MG CY CA OF PS UL CY E NT HI AN A AZ 50 10 11 6. 5 00 WA Ac IT 11 -1 -1 00 00 L- ti HR 10 5- 7- 0 07 MA ve OM 78 20 20 51 RT YC 75 17 17 54 IN 1 62 PH AR 25 MA 0 CY MG #5 TA 91 BL ET BU 00 09 10 20 5 00 HO Ac TA 59 -2 -2 .0 00 ME ti LB 13 1- 7- 00 04 TO ve -A 36 20 20 02 WN CE 90 17 17 47 TA 5 37 PH WA AR N- MA CA CY FF OF 50 -3 CY 25 NT -4 HI 0 AN A AT 60 09 10 30 30 00 [...] ET NT HI AN A ME 63 09 10 12 6 00 HO Ac TO 30 -2 -2 0. 00 ME ti CL 40 1- 7- 00 06 TO ve OP 84 20 20 0 09 WN RA 50 17 17 47 WA 5 96 PH DE AR 5 MA CY MG OF TA BL CY ET NT HI AN A CO 09 10 28 7 00 HO Ac OM 00 -2 -2 .0 00 ME ti ET 10 1- 7- 00 06 TO ve DAVIS 16 20 20 09 WN ZI 20 17 17 47 NE 8 98 PH AR 25 MA CY MG OF TA BL CY ET NT HI AN A TO 09 10 30 30 00 HO Ac PI 46 -2 -2 .0 00 ME ti RA 20 1- 7- 00 06 TO ve MA 10 20 20 09 WN TE 86 17 17 47 0 99 PH 25 AR MA MG CY TA OF BL ET CY NT HI AN A TR 09 10 30 7 00 WA Ac [...] CY MG #5 TA 91 BL ET BU 00 09 10 12 3 00 HO Ac TA 59 -0 -1 .0 00 ME ti LB 13 8- 3- 00 04 TO ve -A 36 20 20 02 WN CE 90 17 17 45 TA 5 31 PH WA AR N- MA CA CY FF OF 50 -3 CY 25 NT -4 HI 0 AN A ME 00 08 09 60 30 00 HO Ac TO 09 -2 -2 .0 00 ME ti CL 32 1- 2- 00 06 TO ve OP 20 20 20 07 WN RA 40 17 17 79 WA 1 14 PH DE AR 5 MA CY MG OF TA BL CY ET NT HI AN A CO 00 08 09 10 5 00 WA [...] CY MG #5 TA 91 BL ET DI 00 08 09 60 30 00 [...] ET OF CY NT HI AN A SE 65 08 09 30 [...] BL CY ET NT HI AN A IB 53 07 [...] 10 0- 5- 00 06 TO ve CO 00 20 20 09 WN ED 50 [...] 06 07 20 10 00 HO Ac CO 57 -1 -2 .0 00 ME ti OF 10 5- 1- 00 06 TO ve LO 41 20 20 08 WN XA 25 17 17 90 CI 0 00 PH N AR HC MA L CY 50 0 OF MG CY TA NT B HI AN A CO 68 06 07 20 5 00 HO [...] 08 WN RA 50 17 17 80 WA 5 56 PH DE AR 5 MA CY MG OF TA BL CY ET NT HI AN A ES 51 05 06 30 30 00 HO Ac TR 86 -0 -0 .0 00 ME ti AD 20 1- 2- 06 TO ve IO 33 20 20 [...] 00 ME ti CL 40 1- 2- 06 TO ve OP 84 20 20 0 08 WN RA 50 17 17 60 WA 5 89 PH DE AR 5 MA CY MG OF TA BL CY ET NT HI AN A ES 51 04 05 30 30 00 HO Ac TR 86 -0 -0 .0 00 ME ti AD 20 3- 5- 06 TO ve IO 33 20 20 08 WN L 40 17 17 43 2 1 57 PH MG AR MA TA CY BL ET OF CY NT HI AN A DI 00 03 04 12 30 00 HO Ac CY 37 -2 -2 0. 00 ME ti CL 81 9 8 06 TO ve OM 61 20 20 0 08 WN IN 00 17 17 41 E 5 57 PH 10 AR MA MG CY CA OF PS UL CY E NT HI AN A ON 00 03 04 30 8 00 HO Ac DA 37 -2 -2 .0 00 ME ti NS 87 9 8 06 TO ve ET 73 20 20 08 WN RO 49 17 17 41 N 3 58 PH OD AR T MA 8 CY MG OF TA BL CY ET NT HI AN A BU 00 03 04 60 30 00 HO Ac SP 11 -2 -2 .0 00 ME ti IR 51 06 TO ve ON 69 20 20 08 WN E 20 17 17 14 HC 2 94 PH L AR 15 MA CY MG OF TA BL CY ET NT HI AN A AT 60 03 04 30 30 00 HO Ac OR 50 -2 -2 .0 00 ME ti VA [address] 57 20 20 [...] BL ET CY NT HI AN A FU 03 04 30 30 00 HO Ac RO 31 -2 -2 .0 00 ME ti SE 50 1- 1- 00 06 TO ve WA 11 20 20 07 WN DE 71 17 17 04 0 10 PH 40 AR MA MG CY TA OF BL ET CY NT HI AN A BU 00 02 03 60 30 00 HO Ac SP 11 -1 -1 .0 00 ME ti IR 51 5- 7- 00 06 TO ve ON 69 20 20 08 WN E 20 17 17 14 HC 2 94 PH L AR 15 MA CY MG OF TA BL CY ET NT HI AN A ON 02 03 30 30 00 HO Ac [...] CY NT TA HI B AN A ON 02 03 15 15 00 HO Ac DA 46 -0 -1 .0 00 ME ti NS 20 3- 0- 00 06 TO ve ET 15 20 20 08 WN RO 81 17 17 08 N 3 02 PH OD AR T MA 8 CY MG OF TA BL CY ET NT HI AN A CO 00 01 03 60 30 00 HO [...] 07 WN RA 40 17 17 79 WA 1 14 PH DE AR 5 MA [...] UN NT IT HI ) AN A ES 51 01 03 30 30 00 HO Ac TR 86 -3 -0 .0 00 ME ti AD 20 0- 3- 00 06 TO ve IO 33 20 20 07 WN L 40 17 17 13 2 1 46 PH MG AR MA TA CY BL ET OF CY NT HI AN A LI 00 01 03 30 30 00 HO Ac NZ 45 -3 -0 .0 00 ME ti ES 61 0- 3- 00 06 TO ve S 20 20 20 07 WN 29 23 17 17 71 0 0 56 PH MC AR G MA CA CY PS UL OF E CY NT HI AN A AT 60 [...] ET NT HI AN A FU 69 01 03 30 30 00 HO Ac RO 31 -3 -0 .0 00 ME ti SE 50 0- 3- 00 06 TO ve WA 11 20 20 07 WN DE 71 17 17 04 0 10 PH 40 AR MA MG CY TA OF BL ET CY NT HI AN A DI 00 12 01 3. 3 00 HO Ac AZ 59 -2 -2 00 00 ME ti EP 15 7- 7- 0 04 TO ve AM 62 20 20 02 WN 2 10 16 17 07 5 95 PH MG AR MA TA CY BL ET OF CY NT HI AN A RA 68 12 [...] ET NT HI AN A FU 69 12 01 30 30 00 HO Ac RO 31 -1 -2 .0 00 ME ti SE 50 9- 0- 00 06 TO ve WA 11 20 20 07 WN DE 71 16 17 04 0 10 PH 40 AR MA MG CY TA OF BL ET CY NT HI AN A ES 51 12 [...] PS NT UL HI E AN A CO 00 12 01 60 30 00 HO [...] 07 WN RA 40 16 17 79 WA 1 14 PH DE AR 5 MA [...] UN NT IT HI ) AN A AT 60 12 01 30 30 00 HO Ac OR 50 -1 -2 .0 00 ME ti VA 52 9- 0- [address] 57 20 20 07 WN AT 80 16 17 79 IN 9 23 PH AR 10 MA CY MG OF TA BL CY ET NT HI AN A LI 00 12 [...] End Date Code Location Performer Type Date [facility] [address] [facility] [place] [id number] [address] [facility] [place] [address] [address] [facility] [place] [address] [address] [facility] [place] [address] [address] [facility] [place] [address] [address] [facility] [place] [address] [address] [facility] [place] [address] [address] [facility] [place] [address] [address] [facility] [place] [address] [address] [facility] [place] [address] [address] [facility] [place] [address] [address] [facility] [place] [address] [address] [facility] [place] [address] 5 [facility] [place] [address] 5 [facility]
--- OUTSIDE RECORDS SUMMARY | 2017-09-28 16:44 | External Medical Summary Rpt | CCD ---
Author Author , SCARLETT Solorzano SCARLETT Address Unknown Phone [email or web address] Care Team Providers Care Him Clerk Name Role Phone SHUBHAM AMANDA, SHUBHAM Unavailable Unavailable AMANDA [facility] Unavailable Unavailable [facility], [facility] Unavailable Unavailable [facility], [facility] Unavailable Unavailable [facility], [facility] Unavailable Unavailable PHYSICIANS, [facility] Un[facility] Unavailable Unavailable [facility]PATOL, [facility] Un[facility], [facility] Unavailable Unavailable INC, [facility] Unavailable Unavailable HOSPITAL P, [facility], [facility]available Unavailable [facility] Un[facility], [facility] Un[facility], [facility] Unavailable Unavailable INTERNAL MED, [facility], Unavailable Unavailable PLL, [facility], [facility] Unavailable Unavailable OF [facility], [facility] Unavailable Unavailable EMERGENCY SERVI, [facility], Unavailable Unavailable [facility] Unavailable Unavailable PHYSICIANS, [facility] Unavailable Unavailable PHYSICIANS EKG, [facility] Unavailable Unavailable CRISTINO, [facility], Unavailable Unavailable [facility] Unavailable Unavailable PHYSICIANS END, [facility] Unavailable Unavailable [facility], Unavailable Unavailable [facility] Purpose Continuity of Care Document - 12-26-2014 through 2016 Problems Code Diagnosis DOS Provider Status [id number] [facility] 08-26-2017 [facility] INTERVERTEB H PAIN RAL DISC ASSOC[facility]ATES DEGEN LUMBOSACRAL REGION [id number] SPINAL 08-26-2017 [facility] INSTABILITI H PAIN ES ASSOCIATES LUMBOSACRAL REGION M545 LOW BACK 08-26-2017 [facility] PAIN H PAIN ASSOCIATES [id number] OTHER LONG 08-26-2017 [facility] TERM H PAIN CURRENT ASSOCIATES DRUG THERAPY Z6837 BODY MASS 08-24-2017 ST INDEX BMI [facility] 37.0-37.9 PHYSICIANS ADULT Z713 DIETARY 08-24-2017 ST COUNSELING [facility] AND PHYSICIANS SURVEILLANC E [id number] MIGRAINE 07-09-2017 [facility] W/O [facility] P W/STAT MIGRAINOSUS [id number] MIGRAINE 07-09-2017 [facility] W/O [facility], [facility] W/STAT MIGRAINOSUS R42 DIZZINESS 07-09-2017 [facility] AND [place] GIEPHRAIMINESS [facility] R51 HEADACHE 07-09-2017 [facility] R55 SYNCOPE AND 07-09-2017 [facility] COLLAPSE PHYSICIANS, [facility] [id number] HORMONE 07-09-2017 [facility] REPLACEMENT [facility] THERAPY INC Z880 ALLERGY 07-09-2017 [facility] STATUS TO MEM HOSP PENICILLIN INC Z885 ALLERGY 07-09-2017 [facility] STATUS TO MEM HOS[facility] NARCOTIC INC AGENT STATUS Z9049 ACQUIRED 07-09-2017 [facility] DIGESTIVE TRACT R08802 SPONDYLOSIS 06-21-2017 [facility] W/O H MYELOPATH/R ORTHOPAEDIC ADICULOPATH CTR Y LUMB RGN [id number] PAIN IN 06-18-2017 [facility] LEFT FOOT N EM[facility]Y SERVI X47589 ACQUIRED 06-18-2017 [place] [facility] OF COMM[facility]TIY BOTH CERVIX HOSPITA AND UTERUS K648 OTHER 06-09-2017 ST HEMORRHOIDS [facility] R1032 LEFT LOWER 06-09-2017 ST QUADRANT [facility] PAIN PHYSICIANS R197 DIARRHEA 06-09-2017 ST UNSPECIFIED [facility] PHYSICIANS R933 ABNORM FIND 06-09-2017 ST ON DX IMAG [facility] OT PARTS PHYSICIANS DIGESTIVE TRACT R938 ABNORMAL 06-09-2017 ST FIND ON DX [facility] CTR SPEC BODY STRCT Z886 ALLERGY 06-09-2017 ST STATUS TO [facility] ANALGESIC [facility]ALTH[facility]ARE AGENT EDGE STATUS [id number] SPRAIN UNS 05-24-2017 [facility] LIGAMENT [facility] LEFT ANKLE INC INITIAL ENCOUNTER R46786Z UNSPECIFIED 05-24-2017 [place] [facility] LEFT ANKLE IMAGING ASS INITIAL ENCOUNTER G8929 OTHER 05-19-2017 ST. CHRONIC [facility] PAIN BRENDA F84826 PAIN IN 05-19-2017 ST. RIGHT HIP [facility] BRENDA C61754 OTHER 05-19-2017 RADIOLOGY SPONDYLOSIS ASSOCIATES LUMBAR OF [facility] REGION R109 UNSPECIFIED 05-19-2017 ST ABDOMINAL [facility] PAIN PHYSICIANS R609 EDEMA 05-19-2017 ST UNSPECIFIED [facility] PHYSICIANS Z6839 BODY MASS 05-19-2017 ST INDEX BMI [facility] 39.0-39.9 PHYSICIANS ADULT Z8781 PERSONAL 05-19-2017 RADIOLOGY HISTORY OF ASSOCIATES HEALED OF [facility] TRAUMATIC FRACTURE E669 OBESITY 04-16-2017 ST UNSPECIFIED [...] 10-28-2016 [place] [facility] UNSPECIFIED INTERNAL MED G55461 MIGRAINE 10-28-2016 [place] UNS NOT VALLEY INTRACT [...] SITES I809 PHLEBITIS & 08-31-2016 [facility] THROMBOPHLE BITIS OF UNSPECIFIED SITE M7989 OTHER 08-31-2016 [place] [facility] SPECIFIED SERV SOFT TISSUE FOUNDATION DISORDERS [id number] CONTUSION 08-31-2016 [facility] OF LEFT PHYSICIANS, UPPER ARM PLLC INITIAL ENCOUNTER E6601 MORBID 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 [place] OBESITY DUE INTERNAL TO EXCESS MED CALORIES Z6841 BODY MASS 08-28-2016 [place] INDEX BMI VALLEY 40.0-44.9 INTERNAL ADULT MED K921 MELENA 08-18-2016 [facility] OLOGY [facility] HEPATOL R740 NONSPECIFIC 08-18-2016 GASTROENTER ELEVATION OLOGY AND LEVELS HEPATOL TRANSAMINAS E & LDH M7061 TROCHANTERI 08-10-2016 [facility] RIGHT HIP R936 ABNORMAL 08-10-2016 [facility]ICAL FINDINGS ON [facility] DIAGNOSTIC FOUNDATION IMAGING OF [place] M461 SACROILIITI 07-30-2016 [place] S NOT VALLEY ELSEWHERE INTERNAL CLASSIFIED MED M5430 SCIATICA 07-30-2016 [place] UNSPECIFIED VALLEY SIDE INTERNAL MED R194 CHANGE IN 07-24-2016 [facility] BOWEL HABIT PHYSICIANS GROUP [id number] MIGRAINE 07-09-2016 [facility] W/O [facility]URA PHYSICIANS, NOT INTRACT PLLC W/O STAT MIGRAIN J029 ACUTE 07-09-2016 [facility] AMANDA PHARYNGITIS UNSPECIFIED J069 ACUTE UPPER 07-09-2016 [facility]OLD AMANDA RESPIRATORY INFECTION UNSPECIFIED L259 UNSPECIFIED 06-27-2016 [facility] AMANDA CONTACT DERMATITIS UNSPECIFIED CAUSE N369 URETHRAL 06-04-2016 [facility] AMANDA DISORDER UNSPECIFIED S04006 PAIN IN 12-07-2015 [place] [facility] Q45295 PAIN IN 12-07-2015 [facility] LEFT LOWER PHYSICIANS, LEG PLLC N6943NS UNS INJURY 12-07-2015 [place] RT LOWER MEDICAL LEG INITIAL IMAGING ASS ENCOUNTER G4700 INSOMNIA 09-09-2015 ST UNSPECIFIED [facility] PHYSICIANS R5383 OTHER 09-09-2015 ST FATIGUE [facility] 2689 UNSPECIFIED 07-17-2015 COMBINED VITAMIN D PHYSICIANS DEFICIENCY [place] 2724 OTHER AND 07-17-2015 COMBINED [place] [address] PAIN IN 07-17-2015 COMBINED JOINT, SITE PHYSICIANS [place] UNSPECIFIED 34868 OTHER 07-17-2015 SHUBHAM PATEL MALAISE AND FATIGUE 6929 CONTACT 07-02-2015 SHUBHAM PATEL DERMATITIS& OTHER ECZEMA DUE UNSPEC CAUSE 55235 CHEST PAIN 03-04-2015 ST UNSPECIFIED [facility] PHYSICIANS EKG 2859 UNSPECIFIED 02-19-2015 ST ANEMIA [facility] 6212 HYPERTROPHY 02-19-2015 ST OF UTERUS [facility] 6253 DYSMENORRHE 02-19-2015 ST A [facility] 6269 UNS D/O 02-19-2015 ST MENSTRUATIO [facility] N&OTH ABN MED CTR BLEED FE GNT TRACT 19698 OTHER 02-18-2015 RADIOLOGY SPECIFIED ASSOCIATES CIRCULATORY OF [facility] DISORDERS V5881 FITTING AND 02-18-2015 RADIOLOGY ADJUSTMENT ASSOCIATES OF OF [facility] VASCULAR CATHETER V7284 UNSPECIFIED 02-13-2015 ST. 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 PAIN [facility] BRENDA [...] OTHER MEDICATIONS V6759 OTHER 01-10-2015 . FOLLOW-UP GALENA EXAMINATION BRENDA OTHER 4660 ACUTE 12-29-2014 BRONCHITIS [facility] 7862 COUGH 12-29-2014 [facility] OF [facility] 3836 UNSPECIFIED 12-26-2014 SINUSITIS [facility] 30236 ESOPHAGEAL 12-26-2014 REFLUX [facility] Medications Na [...] 17 17 47 TA 5 37 PH WY AR N- MA CA CY FF OF [...] 09 WN RA 50 17 17 47 WY 5 96 PH DE AR 5 MA CY MG OF TA BL CY ET NT HI AN A NJ 09 10 28 7 00 HO Ac [...] 17 17 45 TA 5 31 PH WY AR N- MA CA CY FF OF 50 -3 CY 25 NT -4 HI 0 AN A ME 00 08 09 60 30 00 HO Ac TO 09 -2 -2 .0 00 ME ti CL 32 1- 2- 00 06 TO ve OP 20 20 20 07 WN RA 40 17 17 79 WY 1 14 PH DE AR 5 MA CY MG OF TA BL CY ET NT HI AN A NJ 00 08 09 10 5 00 WA [...] 10 0- 5- 00 06 TO ve NJ 00 20 20 09 WN ED 50 [...] 06 07 20 10 00 HO Ac NJ 57 -1 -2 .0 00 ME ti OF 10 5- 1- 00 06 TO ve LO 41 20 20 08 WN XA 25 17 17 90 CI 0 00 PH N AR HC MA L CY 50 0 OF MG CY TA NT B HI AN A NJ 68 06 07 20 5 00 HO [...] 08 WN RA 50 17 17 80 WY 5 56 PH DE AR 5 MA [...] 08 WN RA 50 17 17 60 WY 5 89 PH DE AR 5 MA [...] 50 1- 1- 00 06 TO ve WY 11 20 20 07 WN DE 71 [...] BL CY ET NT HI AN A NJ 00 01 03 60 30 00 HO [...] 07 WN RA 40 17 17 79 WY 1 14 PH DE AR 5 MA [...] 50 0- 3- 00 06 TO ve WY 11 20 20 07 WN DE 71 [...] 50 9- 0- 00 06 TO ve WY 11 20 20 07 WN DE 71 [...] PS NT UL HI E AN A NJ 00 12 01 60 30 00 HO [...] 07 WN RA 40 16 17 79 WY 1 14 PH DE AR 5 MA [...] End Date Code Location Performer Type Date [facility] 7 [facility] [place] [id number] 7 [facility] [place] [address] [address] [facility] [place] [address] [facility] [place] [address] [facility] [place] [address] [facility] [place] [address] [address] [facility] [place] [address] [address] [facility] [place] [address] [address] [facility] [place] [address] [address] [facility] [place] [address] [address] [facility] [place] [address] [address] [facility] [place] [address] [facility] [place] [address] 5 [facility] [place] [address] 5 [facility]
--- OUTSIDE RECORDS SUMMARY | 2017-09-28 16:45 | External Medical Summary Rpt | CCD ---
Demographics Home Phone Preferred Language Portuguese Marital Status Unknown Uatsdin Affiliation Unknown Race Unknown Ethnic Group Unknown Author Author , SCARLETT PANTOJA Address Unknown Phone [email or web address] Immunization Name Date Rout CVX Reac Dose Comm Prov Is Faci e tion ent ider Refu lity Give sed n Infl 02-1 Intr 999 Hist D202 No D202 uenz 5-20 amus oric 94 94 a 17 cula al Quad r Info rmat W/Pr ion es - Sour ce Unsp ecif ied PPV2 10-2 Intr 33 999 Hist 1005 No 1005 3 9-20 amus oric 00 00 14 cula al r Info rmat ion - Sour ce Unsp ecif ied Infl 10-2 Intr 140 999 Hist 1005 No 1005 uenz 9-20 amus oric 00 00 a, 14 cula al P-Fr r Info ee rmat ion - Sour ce Unsp ecif ied
--- OUTSIDE RECORDS SUMMARY | 2017-09-28 16:45 | External Medical Summary Rpt ---
Author Author SCARLETT Ludwig, [employer] Address Unknown Phone Unavailable
--- OUTSIDE RECORDS SUMMARY | 2017-09-28 16:45 | External Medical Summary Rpt | CCD ---
Demographics Home Phone Preferred Language Citizen Of [place] Marital Status Unknown Anglican Affiliation Unknown Race Unknown Ethnic Group Unknown Author Author , SCARLETT PANTOJA Address Unknown Phone [email or web address] Immunization Name Date Rout CVX Reac Dose [...]
[2017-09-28 18:32] VITALS: BP 127/82
== END 2017-09-28 18:33 | disposition home or self-care (01) ==
LOC: ER 15:52
DX: G43.011 Migraine without aura, intractable, with status migrainosus (principal); F41.8 Other specified anxiety disorders; Z88.0 Allergy status to penicillin; R42 Dizziness and giddiness